=== PATIENT | female | born 1960 | race Caucasian/White ===

== ENCOUNTER → 2020-12-26 14:00 | Outpatient (BNVA) | payer OTHER, SELFPAY | PROVIDERS: Family Provider Nurse Practitioner Family; PCP Nurse Practitioner Family; Visit Provider Nurse Practitioner Family | DX: K21.9 Gastro-esophageal reflux disease without esophagitis (principal); R13.10 Dysphagia, unspecified; I10 Essential (primary) hypertension; R22.1 Localized swelling, mass and lump, neck; J02.9 Acute pharyngitis, unspecified; Z68.29 Body mass index [BMI] 29.0-29.9, adult | CPT/HCPCS: 80053; 84443 ==

== ENCOUNTER 2021-01-15 09:05 | Emergency (ER) | payer OTHER, SELFPAY ==
--- NOTE | 2021-01-15 09:12 | CTR_ITS ---
PROCEDURE INFORMATION: Exam: CT Abdomen And Pelvis With Contrast Exam date and time: 01/15/2021 9:18 AM Age: 60 years old Clinical indication: Abdominal pain; Localized; Lower; Additional info: Abd pain TECHNIQUE: Imaging protocol: Computed tomography of the abdomen and pelvis with contrast. Radiation optimization: All CT scans at this facility use at least one of these dose optimization techniques: automated exposure control; mA and/or kV adjustment per patient size (includes targeted exams where dose is matched to clinical indication); or iterative reconstruction. Contrast material: OMNI 300; Contrast volume: 95 ml; Contrast route: INTRAVENOUS (IV); COMPARISON: No relevant prior studies available. RADIATION DOSE METRICS: Total DLP (mGy-cm): 1391.87 FINDINGS: Liver: Normal. No mass. Gallbladder and bile ducts: Cholecystectomy. Normal bile ducts. Pancreas: Normal. No ductal dilation. Spleen: Normal. No splenomegaly. Adrenal glands: Normal. No mass. Kidneys and ureters: Normal. No hydronephrosis. Stomach and bowel: Unremarkable. No obstruction. No mucosal thickening. Appendix: The appendix is identified and is normal. Intraperitoneal space: There is a small amount of free fluid in the pelvis. No free air seen. Vasculature: There is calcification of the abdominal aorta but there is no aneurysm. Lymph nodes: Unremarkable. No enlarged lymph nodes. Urinary bladder: Unremarkable as visualized. Reproductive: Multiple fibroids are present in the uterus. The largest is a calcified 2.3 cm fibroid. No adnexal masses are seen. Bones/joints: Degenerative changes are present in the spine with sclerosis and osteophytes. Soft tissues: Unremarkable. CT/CT abdomen pelvis w con* [id number] IMPRESSION: 1. Small amount of nonspecific free fluid in the pelvis. 2. Fibroid uterus. 3. 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 4. Cholecystectomy. 5. No other acute abnormalities are seen in the abdomen and pelvis. Radiation Dose CTDIVOL = (mGy): DLP = 1391.87 (mGy-cm)
[2021-01-15 09:17] VITALS: BP 164/88; PULSE 77; RESP 16; TEMP 36.6; O2SAT 97; BMI 29.8
--- NOTE | 2021-01-15 09:23 | ED_ITS ---
Documented by User: Timothy Najera DO 01/16/21 18:07 HPI - Abdominal Pain General: Chief Complaint: Abdominal Pain Stated Complaint: MUCUS IN STOOL, SEVERE PAIN/ PRESSURE Time Seen by Provider: 01/15/21 09:09 History of Present Illness: HPI narrative: 60-year-old female comes in complaining of mucousy stools. She said this for about 10 days. I few weeks ago she had sinus infection symptoms seen her primary care doctor was started on Augmentin. She is able to take it for about 3 days but had severe diarrhea he stopped the antibiotics but the diarrhea persisted. Now has progressed to where she has severely mucousy stools she is having up to 10 stools per day no hematochezia no black tarry stools. She is also having a lot of rectal pain bloating and abdominal discomfort focuses most of the discomfort to the left lo wer quadrant. MD elicited complaint: abdominal pain Onset (ago): day(s) Pain Consistency: constant Location: LLQ Severity: moderate Quality: cramping and stabbing Exacerbating factors: eating and movement Relieving factors: rest Context: recent antibiotic use Associated Symptoms: Reports anorexia, bloating, change in bowel habits, change in stool character, GI cramping, diarrhea, nausea and poor appetite; Denies belching, chills, coffee ground emesis, constipation, dyspepsia, dysuria, excessive flatus, fever(s), heartburn, hematochezia, hematuria, hematemesis, fecal incontinence, loose stools, melena, syncope and vomiting Review of Systems Const: Denies: fever(s) or chills ENMT: Denies: throat pain, ear or mastoid pain, nasal discharge or nasal congestion Card: Denies: syncope Resp: Denies: dyspnea, productive cough or non-productive cough GI: Reports: nausea, diarrhea, bloating, GI cramping, change in bowel habits and change in stool character; Denies: vomiting, hematemesis, coffee ground emesis, heartburn, constipation, belching, excessive flatus, fecal incontinence, hematochezia or melena : Denies: dysuria or hematuria Skin/Breast: Denies: rash or pruritus PFSH ED PFSH: Medical History Hypertension Social History Smoking and tobacco status: never smoked Physical Exam Const: COMMON NORMALS: no acute distress GENERAL APPEARANCE: cooperative and comfortable ORIENTATION/CONSCIOUSNESS: Yes awake, Yes oriented to person, Yes oriented to place and Yes oriented to time HENMT: COMMON NORMALS: normocephalic, atraumatic and hearing grossly normal bilaterally HEAD & SCALP: normocephalic and atraumatic Neck/C-Spine: COMMON NORMALS: no JVD Resp: COMMON NORMALS: normal respiratory effort, No retractions, No use of accessory muscles and clear to auscultation bilaterally AUSCULTATION: clear to auscultation bilaterally Cardio: COMMON NORMALS: no JVD, regular rate, regular rhythm and No murmurs present (Cardio) RATE: regular rate RHYTHM: regular rhythm GI: COMMON NORMALS: No hepatosplenomegaly present AUSCULTATION: Yes Hyper active bowel sounds present PALPATION: Yes Tenderness to palpation present (GI) Details: LLQ, No Guarding due to palpation present (GI) and Yes No hepatosplenomegaly present Extremity: COMMON NORMALS: normal to inspection, capillary refill normal, no clubbing, cyanosis or edema, no calf tenderness and no pedal edema Neuro: SENSORIUM/ORIENTATION: Yes oriented to person, Yes oriented to place and Yes oriented to time Skin: COMMON NORMALS: no rashes or lesions noted GENERAL SKIN EXAM: no rashes or lesions noted Course Vital Signs: Vital signs: Vital Signs Temperature 97.9 F 01/15/21 09:17 Pulse Rate 65 01/15/21 13:20 Respiratory Rate 20 H 01/15/21 13:20 Blood Pressure 130/69 01/15/21 13:20 Pulse Oximetry 98 01/15/21 13:20 MDM - Abdominal Pain MDM Narrative: Medical decision making narrative: Care turned over to Dr. Aviles at change of shift see his notes for final diagnosis and disposition. Lab Data: Labs: Lab Results 01/15/21 01/15/21 01/15/21 Range/Units 09:35 09:35 09:35 WBC 9.3 (4.0-10.0) 10^3/ uL RBC 4.37 (4.1-5.3) 10^6/u L Hgb 13.4 (11.5-15.3) g/dL Hct 40.6 (37.0-47.0) % MCV 92.9 (81-99) fL MCH 30.7 (28.0-34.0) pg MCHC 33.0 (30.0-36.0) g/dL RDW 11.8 L (12.1-15.1) % Plt Count 216 (130-400) 10^3/c mm MPV 11.2 H (7.4-10.4) fL Neut % (Auto) 78.7 % Lymph % (Auto) 13.1 % [place] % (Auto) 6.3 % Eos % (Auto) 1.2 % Baso % (Auto) 0.3 % Neut # (Auto) 7.30 (1.8-7.7) 10^3/u L Lymph # (Auto) 1.2 (0.8-4.8) 10^3/u L [place] # (Auto) 0.6 (0.2-0.9) 10^3/u L Eos # (Auto) 0.1 (0.0-0.8) 10^3/u L Baso # (Auto) 0.0 (0.0-0.1) 10^3/u L Nucleated RBC % (a uto) 0 % Nucleated RBCs # 0.0 /100WBC Sodium 136 (136-145) mmol/L Potassium 4.4 (3.5-5.1) mmol/L Chloride 101 (98-107) mmol/L Carbon Dioxide 28 (22-29) mmol/L Anion Gap 11.4 (5-19) BUN 15 (8-23) mg/dL Creatinine 0.5 (0.5-0.9) mg/dL GFR Calculation 125.4 (90-130) mL/min Glucose 105 (65-115) mg/dL Calculated Osmolal ity 283 L (285-295) mOsm/k g Lactic Acid 0.7 (0.5-2.2) mmol/L Calcium 8.5 (8.5-10.5) mg/dL Total Bilirubin 0.7 (0.15-1.2) mg/dL AST 14 (0-32) U/L ALT 12 (0-33) U/L Alkaline Phosphata se 52 (35-105) IU/L Total Protein 7.0 (6.6-8.7) g/dL Albumin 4.1 (3.5-5.2) g/dL Globulin 2.9 (1.3-4.6) g/dL Lipase 28 (13-60) U/L Urine Color (Yellow) Urine Appearance (CLEAR) Urine pH (5-7) Ur Specific Gravit y (1.005-1.030) Urine Protein (Negative) Urine Glucose (UA) (Normal) Urine Ketones (Negative) Urine Blood (Negative) Urine Nitrate (Negative) Urine Bilirubin (Negative) Urine Urobilinogen (Negative) mg/dL Ur Leukocyte Shazia ase (Negative) Urine RBC (0-2) /hpf Urine WBC (0-5) /hpf Ur Squamous Epith Cells (0-5) /hpf Amorphous Sediment Urine Bacteria (NONE) /hpf Urine Mucus /hpf 01/15/21 Range/Units 10:19 WBC (4.0-10.0) 10^3/ uL RBC (4.1-5.3) 10^6/u L Hgb (11.5-15.3) g/dL Hct (37.0-47.0) % MCV (81-99) fL MCH (28.0-34.0) pg MCHC (30.0-36.0) g/dL RDW (12.1-15.1) % Plt Count (130-400) 10^3/c mm MPV (7.4-10.4) fL Neut % (Auto) % Lymph % (Auto) % [place] % (Auto) % Eos % (Auto) % Baso % (Auto) % Neut # (Auto) (1.8-7.7) 10^3/u L Lymph # (Auto) (0.8-4.8) 10^3/u L [place] # (Auto) (0.2-0.9) 10^3/u L Eos # (Auto) (0.0-0.8) 10^3/u L Baso # (Auto) (0.0-0.1) 10^3/u L Nucleated RBC % (a uto) % Nucleated RBCs # /100WBC Sodium (136-145) mmol/L Potassium (3.5-5.1) mmol/L Chloride (98-107) mmol/L Carbon Dioxide (22-29) mmol/L Anion Gap (5-19) BUN (8-23) mg/dL Creatinine (0.5-0.9) mg/dL GFR Calculation (90-130) mL/min Glucose (65-115) mg/dL Calculated Osmolal ity (285-295) mOsm/k g Lactic Acid (0.5-2.2) mmol/L Calcium (8.5-10.5) mg/dL Total Bilirubin (0.15-1.2) mg/dL AST (0-32) U/L ALT (0-33) U/L Alkaline Phosphata se (35-105) IU/L Total Protein (6.6-8.7) g/dL Albumin (3.5-5.2) g/dL Globulin (1.3-4.6) g/dL Lipase (13-60) U/L Urine Color Straw (Yellow) Urine Appearance Clear (CLEAR) Urine pH 6 (5-7) Ur Specific Gravit y 1.005 (1.005-1.030) Urine Protein Neg (Negative) Urine Glucose (UA) Norm (Normal) Urine Ketones Negative (Negative) Urine Blood 3+ H (Negative) Urine Nitrate Negative (Negative) Urine Bilirubin Neg (Negative) Urine Urobilinogen Norm (Negative) mg/dL Ur Leukocyte Shazia ase 1+ H (Negative) Urine RBC 10-15 H (0-2) /hpf Urine WBC 5-10 H (0-5) /hpf Ur Squamous Epith Cells 0-4 H (0-5) /hpf Amorphous Sediment Not Reportable Urine Bacteria 1+ H (NONE) /hpf Urine Mucus 1+ /hpf Discharge Plan Discharge Patient Disposition: Home Clinical Impression: C. difficile diarrhea, UTI (urinary tract infection) Condition: Stable Prescriptions: New Macrobid 100 mg capsule 100 mg PO BID 5 Days Qty: 10 RF: 0 vancomycin 125 mg capsule 125 mg PO Q6H 10 Days Qty: 40 RF: 0 Discontinued amoxicillin-pot clavulanate [Augmentin] 875-125 mg tablet 1 tab PO BID 10 Days Qty: 20 RF: 0 No Action ibuprofen 200 mg Tablet 200 - 400 mg PO Q6H PRN (Reason: Pain) RF: 0 Vitamin D3 1 tab PO DAILY@0800 RF: 0 lisinopril 20 mg tablet 20 mg PO DAILY@1999 RF: 0 Pepcid 40 mg tablet 40 mg PO BID@0800,1999 RF: 0 metoprolol tartrate 50 mg tablet 75 mg PO BID@ RF: 0 hydrochlorothiazide 25 mg tablet 25 mg PO DAILY@0800 RF: 0 Discharge Orders: Discharge ED (Routine); Ordered 01/15/21 Ordered By: Phil Nieves Referrals: Ct Arriola, INSTRUMENT TECHNICIAN APPRENTICE [Primary Care Provider] - Discharge Diet: Advance as tolerated Discharge Activity: Resume usual activity Patient Instructions: Clostridium Difficile Infection (ED), Opioid Safety Activity Restrictions/Additional Instructions: You are suffering from a C. difficile infection likely related to your recent antibiotics. Please take the vancomycin 4 times a day as directed to help with this and your cramps should get better over time. Follow-up with your physician in 3 to 5 days to monitor improvement of your symptoms and return to the ER with worsening symptoms. Also you have a mild urinary tract infection and I am sending you home with Macrobid to help with this. Coding Level of Care Code ED Manager Paper for Chg Fwd Exam Comprehensive Documented by User: Phil Nieves MD 01/15/21 12:49 HPI - Abdominal Pain General: Chief Complaint: Abdominal Pain Stated Complaint: MUCUS IN STOOL, SEVERE PAIN/ PRESSURE Time Seen by Provider: 01/15/21 09:09 [facility] ED PFSH: Medical History Hypertension Social History Smoking and tobacco status: never smoked Course Vital Signs: Vital signs: Vital Signs Temperature 97.9 F 01/15/21 09:17 Pulse Rate 65 01/15/21 13:20 Respiratory Rate 20 H 01/15/21 13:20 Blood Pressure 130/69 01/15/21 13:20 Pulse Oximetry 98 01/15/21 13:20 MDM - Abdominal Pain MDM Narrative: Medical decision making narrative: Ezequiel: I took over care of this patient just before 10 AM. She came to the ER complaining of abdominal pain and diarrhea. She was recently treated with Augmentin for a sinus infection and developed diarrhea and cramping for the past several days. Blood testing is normal however a sample of her stool is positive for C. difficile. She was given a dose of vancomycin orally in the ER and discharged with a prescription. I discussed with her how pesky this bacteria is and how to take some time to recover from and can recur at any time. She will also discuss it with any future prescriptions of antibiotic she receives with the prescribing physician. Return to the ER with worsening symptoms otherwise follow-up with her primary care physician in 3 to 5 days. 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 I discussed that she may want to stay home from work and call the physician as it is quite contagious and do not want to spread it to other patients. She understands and will follow these recommendations. Recommended handwashing for her and her to prevent spread of infection as the alcohol does not kill it. Lab Data: Labs: Lab Results 01/15/21 01/15/21 01/15/21 Range/Units 09:35 09:35 09:35 WBC 9.3 (4.0-10.0) 10^3/ uL RBC 4.37 (4.1-5.3) 10^6/u L Hgb 13.4 (11.5-15.3) g/dL Hct 40.6 (37.0-47.0) % MCV 92.9 (81-99) fL MCH 30.7 (28.0-34.0) pg MCHC 33.0 (30.0-36.0) g/dL RDW 11.8 L (12.1-15.1) % Plt Count 216 (130-400) 10^3/c mm MPV 11.2 H (7.4-10.4) fL Neut % (Auto) 78.7 % Lymph % (Auto) 13.1 % [place] % (Auto) 6.3 % Eos % (Auto) 1.2 % Baso % (Auto) 0.3 % Neut # (Auto) 7.30 (1.8-7.7) 10^3/u L Lymph # (Auto) 1.2 (0.8-4.8) 10^3/u L [place] # (Auto) 0.6 (0.2-0.9) 10^3/u L Eos # (Auto) 0.1 (0.0-0.8) 10^3/u L Baso # (Auto) 0.0 (0.0-0.1) 10^3/u L Nucleated RBC % (a uto) 0 % Nucleated RBCs # 0.0 /100WBC Sodium 136 (136-145) mmol/L Potassium 4.4 (3.5-5.1) mmol/L Chloride 101 (98-107) mmol/L Carbon Dioxide 28 (22-29) mmol/L Anion Gap 11.4 (5-19) BUN 15 (8-23) mg/dL Creatinine 0.5 (0.5-0.9) mg/dL GFR Calculation 125.4 (90-130) mL/min Glucose 105 (65-115) mg/dL Calculated Osmolal ity 283 L (285-295) mOsm/k g Lactic Acid 0.7 (0.5-2.2) mmol/L Calcium 8.5 (8.5-10.5) mg/dL Total Bilirubin 0.7 (0.15-1.2) mg/dL AST 14 (0-32) U/L ALT 12 (0-33) U/L Alkaline Phosphata se 52 (35-105) IU/L Total Protein 7.0 (6.6-8.7) g/dL Albumin 4.1 (3.5-5.2) g/dL Globulin 2.9 (1.3-4.6) g/dL Lipase 28 (13-60) U/L Urine Color (Yellow) Urine Appearance (CLEAR) Urine pH (5-7) Ur Specific Gravit y (1.005-1.030) Urine Protein (Negative) Urine Glucose (UA) (Normal) Urine Ketones (Negative) Urine Blood (Negative) Urine Nitrate (Negative) Urine Bilirubin (Negative) Urine Urobilinogen (Negative) mg/dL Ur Leukocyte Shazia ase (Negative) Urine RBC (0-2) /hpf Urine WBC (0-5) /hpf Ur Squamous Epith Cells (0-5) /hpf Amorphous Sediment Urine Bacteria (NONE) /hpf Urine Mucus /hpf 01/15/21 Range/Units 10:19 WBC (4.0-10.0) 10^3/ uL RBC (4.1-5.3) 10^6/u L Hgb (11.5-15.3) g/dL Hct (37.0-47.0) % MCV (81-99) fL MCH (28.0-34.0) pg MCHC (30.0-36.0) g/dL RDW (12.1-15.1) % Plt Count (130-400) 10^3/c mm MPV (7.4-10.4) fL Neut % (Auto) % Lymph % (Auto) % [place] % (Auto) % Eos % (Auto) % Baso % (Auto) % Neut # (Auto) (1.8-7.7) 10^3/u L Lymph # (Auto) (0.8-4.8) 10^3/u L [place] # (Auto) (0.2-0.9) 10^3/u L Eos # (Auto) (0.0-0.8) 10^3/u L Baso # (Auto) (0.0-0.1) 10^3/u L Nucleated RBC % (a uto) % Nucleated RBCs # /100WBC Sodium (136-145) mmol/L Potassium (3.5-5.1) mmol/L Chloride (98-107) mmol/L Carbon Dioxide (22-29) mmol/L Anion Gap (5-19) BUN (8-23) mg/dL Creatinine (0.5-0.9) mg/dL GFR Calculation (90-130) mL/min Glucose (65-115) mg/dL Calculated Osmolal ity (285-295) mOsm/k g Lactic Acid (0.5-2.2) mmol/L Calcium (8.5-10.5) mg/dL Total Bilirubin (0.15-1.2) mg/dL AST (0-32) U/L ALT (0-33) U/L Alkaline Phosphata se (35-105) IU/L Total Protein (6.6-8.7) g/dL Albumin (3.5-5.2) g/dL Globulin (1.3-4.6) g/dL Lipase (13-60) U/L Urine Color Straw (Yellow) Urine Appearance Clear (CLEAR) Urine pH 6 (5-7) Ur Specific Gravit y 1.005 (1.005-1.030) Urine Protein Neg (Negative) Urine Glucose (UA) Norm (Normal) Urine Ketones Negative (Negative) Urine Blood 3+ H (Negative) Urine Nitrate Negative (Negative) Urine Bilirubin Neg (Negative) Urine Urobilinogen Norm (Negative) mg/dL Ur Leukocyte Shazia ase 1+ H (Negative) Urine RBC 10-15 H (0-2) /hpf Urine WBC 5-10 H (0-5) /hpf Ur Squamous Epith Cells 0-4 H (0-5) /hpf Amorphous Sediment Not Reportable Urine Bacteria 1+ H (NONE) /hpf Urine Mucus 1+ /hpf Discharge Plan Discharge Patient Disposition: Home Clinical Impression: C. difficile diarrhea, UTI (urinary tract infection) Condition: Stable Prescriptions: New Macrobid 100 mg capsule 100 mg PO BID 5 Days Qty: 10 RF: 0 vancomycin 125 mg capsule 125 mg PO Q6H 10 Days Qty: 40 RF: 0 Discontinued amoxicillin-pot clavulanate [Augmentin] 875-125 mg tablet 1 tab PO BID 10 Days Qty: 20 RF: 0 No Action ibuprofen 200 mg Tablet 200 - 400 mg PO Q6H PRN (Reason: Pain) RF: 0 Vitamin D3 1 tab PO DAILY@0800 RF: 0 lisinopril 20 mg tablet 20 mg PO DAILY@1999 RF: 0 Pepcid 40 mg tablet 40 mg PO BID@799,1999 RF: 0 metoprolol tartrate 50 mg tablet 75 mg PO BID@799,1999 RF: 0 hydrochlorothiazide 25 mg tablet 25 mg PO DAILY@0800 RF: 0 Discharge Orders: Discharge ED (Routine); Ordered 01/15/21 Ordered By: Phil Nieves Referrals: Ct Arriola NP [Primary Care Provider] - Discharge Diet: Advance as tolerated Discharge Activity: Resume usual activity Patient Instructions: Clostridium Difficile Infection (ED), Opioid Safety Activity Restrictions/Additional Instructions: You are suffering from a C. difficile infection likely related to your recent antibiotics. Please take the vancomycin 4 times a day as directed to help with this and your cramps should get better over time. Follow-up with your physician in 3 to 5 days to monitor improvement of your symptoms and return to the ER with worsening symptoms. Also you have a mild urinary tract infection and I am sending you home with Macrobid to help with this. Coding Level of Care Code ED Manager Paper for [place]ad[place] Fwd Exam Comprehensive
[2021-01-15 09:50] VITALS: RESP 18
[2021-01-15] MEDS: morphine 4 mg/mL SDV 1 mL IVP (09:50)
[2021-01-15] MEDS: ondansetron 2 mg/ML SDV 2 mL 4 MG IVP (09:52)
[2021-01-15] MEDS: sodium chloride 0.9% 1,000 ML 999 ML IV (09:53)
[2021-01-15 09:54] LABS: Basophils % 0.3 %; Eosinophils # 0.1 10^3/uL (0.0-0.8); Eosinophils % 1.2 %; Hematocrit 40.6 % (37.0-47.0); Hemoglobin 13.4 g/dL (11.5-15.3); Lymphocytes # 1.2 10^3/uL (0.8-4.8); Lymphocytes % 13.1 %; Mean Corpuscular Hemoglobin 30.7 pg (28.0-34.0); Mean Corpuscular Volume 92.9 fL (81-99); Mean Platelet Volume 11.2 fL (7.4-10.4); Monocytes # 0.6 10^3/uL (0.2-0.9); Monocytes % 6.3 %; Neutrophils % 78.7 %; Nucleated Red Blood Cells % 0 %; Platelet Count 216 10^3/cmm (130-400); Red Blood Count 4.37 10^6/uL (4.1-5.3); Red Cell Distribution Width 11.8 % (12.1-15.1); White Blood Count 9.3 10^3/uL (4.0-10.0)
[2021-01-15 10:30] LABS: Alanine Aminotransferase 12 U/L (0-33); Albumin Level 4.1 g/dL (3.5-5.2); Alkaline Phosphatase 52 IU/L (35-105); Aspartate Amino Transferase 14 U/L (0-32); Blood Urea Nitrogen 15 mg/dL (8-23); Calcium 8.5 mg/dL (8.5-10.5); Carbon Dioxide 28 mmol/L (22-29); Chloride 101 mmol/L (98-107); Creatinine Clr Calc Pharmacy 120.1052; Globulin 2.9 g/dL (1.3-4.6); Glomerular Filtration Rate 125.4 mL/min (90-130); Glucose 105 mg/dL (65-115); Lipase 28 U/L (13-60); Osmolality Calculated 283 mOsm/kg (285-295); Sodium 136 mmol/L (136-145); Total Bilirubin 0.7 mg/dL (0.15-1.2)
[2021-01-15 10:31] LABS: Anion Gap 11.4 (5-19); Lactic Sepsis W/Reflex 0.7 mmol/L (0.5-2.2); Potassium 4.4 mmol/L (3.5-5.1)
[2021-01-15] MEDS: iohexol 300 mg/mL 100 mL Btl IV (10:41)
[2021-01-15 10:51] LABS: Specific Gravity, Urine 1.005 (1.005-1.030); Urine Appearance Clear (CLEAR); Urine Color Straw (Yellow); pH Urine 6 (5-7)
[2021-01-15 10:52] LABS: Add Urine Culture? Yes; Add Urine Microscopic? YES; Bacteria Urine 1+ /hpf; Bilirubin Urine Neg (Negative); Blood Urine 3+ (Negative); Glucose Urine UA Norm (Normal); Ketones Urine Negative (Negative); Leukocyte Esterase Urine 1+ (Negative); Mucus Urine 1+ /hpf; Nitrate Urine Negative (Negative); Protein Urine Neg (Negative); Squamous Epithelial Cell Urine 0-4 /hpf (0-5); Urobilinogen Urine Norm (Negative)
[2021-01-15 13:20] VITALS: BP 130/69; PULSE 65; RESP 20; O2SAT 98
== END 2021-01-15 13:22 | disposition home or self-care (01) ==
PROVIDERS: Family Medicine; Emergency Provider Family Medicine; PCP Nurse Practitioner Family
DX: A04.72 Enterocolitis due to Clostridium difficile, not specified as recurrent (principal); N39.0 Urinary tract infection, site not specified; I10 Essential (primary) hypertension
CPT/HCPCS: 74177; 80053; 81001; 83605; 83690; 85025; 87086; 87493; 96361; 96374; 96375; 99284; J2270; J2405; J3370; J7030; Q9967

== ENCOUNTER 2021-01-17 13:20 | Inpatient (IN) | payer OTHER, SELFPAY ==
[2021-01-17] VITALS (7 sets, daily range): BP systolic 128–151; BP diastolic 74–84; PULSE 84–93; RESP 17–18; TEMP 36.8–37.1; O2SAT 94–98; BMI 29.8
--- NOTE | 2021-01-17 13:58 | PC.NURSE ---
pt unable to provide a stool sample at this time. Fidelina PETERS notified.
--- NOTE | 2021-01-17 14:16 | CT_ITS ---
WS: [id number] CT ABDOMEN AND PELVIS WITH CONTRAST HISTORY: has c. diff, severe lower abdominal pain. TECHNIQUE: Imaging performed of the abdomen and pelvis with IV contrast. Single phase imaging of the abdomen. Coronal and sagittal reformats are submitted. All CT scans at [facility] use at least one of these dose optimization techniques: automated exposure control; mA and/or kV adjustment per patient size (includes targeted exams where dose is matched to clinical indication); or iterativ e reconstruction. IV CONTRAST: Omnipaque 300; 95 mL IV. Oral contrast: No DLP: 1512.33 mGy.cm COMPARISON: 01/15/2021 Lower thorax: Lung bases are clear. Heart is normal size. Small hiatal hernia. Liver/biliary system: Normal size with no intrahepatic dilatation. Gallbladder: Status post cholecystectomy. Pancreas: Normal. Spleen: Normal. Adrenal glands: Normal. Right kidney: Normal. Left kidney: Normal. Aorta: Mild atherosclerosis with no aneurysm. Lymphadenopathy: None. Free fluid: Small amount of free fluid in the pelvis. Small amount of free fluid in the cul-de-sac an d also along the LEFT adnexa. GI tract: Diffuse increase in fecal retention and constipation. Since the prior study there has been a significant progression of wall thickening and edema involving the distal sigmoid colon and the rec dorene. There is now free fluid and narrowing of the lumen. No free air. Abdominal wall: Unremarkable abdominal wall. No hernia. Pelvis: Uterus is anteverted with calcified fibroid to the LEFT. Fluid in the cul-de-sac and edema ibarra rrounding the distal sigmoid and rectum. Bones: RIGHT ilium bone island. CT/CT abdomen pelvis w con* [id number] IMPRESSION: 1. Progression of circumferential wall thickening with mucosal edema involving the distal sigmoid and rectum. New adjacent free fluid with pericolonic strand ing. Probably on the basis of patient's known C. difficile. 2. Increase in the diffuse constipation and fecal retention. 3. Normal appendix. 4. No free air. 5. Prior cholecystectomy.
[2021-01-17 14:38] LABS: Basophils % 0.2 %; Eosinophils # 0.1 10^3/uL (0.0-0.8); Eosinophils % 0.8 %; Hematocrit 38.8 % (37.0-47.0); Hemoglobin 12.9 g/dL (11.5-15.3); Lymphocytes % 10.2 %; Mean Corpuscular HGB Conc 33.2 g/dL (30.0-36.0); Mean Corpuscular Hemoglobin 30.5 pg (28.0-34.0); Mean Corpuscular Volume 91.7 fL (81-99); Mean Platelet Volume 11.1 fL (7.4-10.4); Monocytes # 0.7 10^3/uL (0.2-0.9); Monocytes % 6.3 %; Neutrophils # 8.43 10^3/uL (1.8-7.7); Neutrophils % 82.3 %; Nucleated Red Blood Cells % 0 %; Platelet Count 231 10^3/cmm (130-400); Red Blood Count 4.23 10^6/uL (4.1-5.3); Red Cell Distribution Width 11.6 % (12.1-15.1); White Blood Count 10.2 10^3/uL (4.0-10.0)
[2021-01-17 14:42] LABS: Add Urine Microscopic? YES; Bilirubin Urine Neg (Negative); Blood Urine 3+ (Negative); Glucose Urine UA Norm (Normal); Ketones Urine Negative (Negative); Leukocyte Esterase Urine Trace (Negative); Nitrate Urine Negative (Negative); Protein Urine Neg (Negative); Urine Appearance Clear (CLEAR); Urine Color Yellow (Yellow); Urobilinogen Urine Norm (Negative); pH Urine 5 (5-7)
[2021-01-17 14:54] LABS: Alanine Aminotransferase 16 U/L (0-33); Albumin Level 4.3 g/dL (3.5-5.2); Alkaline Phosphatase 57 IU/L (35-105); Anion Gap 14.7 (5-19); Aspartate Amino Transferase 11 U/L (0-32); Blood Urea Nitrogen 9 mg/dL (8-23); C Reactive Protein 124.6 mg/L (0.0-4.9); Calcium 9.1 mg/dL (8.5-10.5); Carbon Dioxide 30 mmol/L (22-29); Chloride 95 mmol/L (98-107); Creatinine Clr Calc Pharmacy 120.1052; Globulin 3.3 g/dL (1.3-4.6); Glomerular Filtration Rate 125.4 mL/min (90-130); Glucose 112 mg/dL (65-115); Lipase 17 U/L (13-60); Osmolality Calculated 281 mOsm/kg (285-295); Potassium 3.7 mmol/L (3.5-5.1); Sodium 136 mmol/L (136-145); Total Bilirubin 0.6 mg/dL (0.15-1.2); Total Protein 7.6 g/dL (6.6-8.7)
[2021-01-17 14:55] LABS: Lactate (Lactic Acid level) 0.8 mmol/L (0.5-2.2)
[2021-01-17 15:02] LABS: Add Urine Culture? Yes; Bacteria Urine 1+ /hpf; Squamous Epithelial Cell Urine 0-4 /hpf (0-5); WBC Urine 0-4 /hpf (0-5)
[2021-01-17] MEDS: iohexol 300 mg/mL 100 mL Btl IV (15:08)
[2021-01-17] MEDS: ondansetron 2 mg/ML SDV 2 mL 4 MG IVP ×2 (15:14→21:30)
[2021-01-17] MEDS: morphine 4 mg/mL SDV 1 mL IVP (15:14)
[2021-01-17] MEDS: metroNIDAZOLE IV 500 MG/100 ML PREMIX 100 MG IV (17:06)
--- NOTE | 2021-01-17 17:27 | PM.HP ---
Providers/Chief Complaint Primary Care Provider: Ct Arriola NP Chief Complaint: SEEN SUN W/C EVELIN, FEELS WORSE TODAY,SENT BY PCP History of Present Illness Olesya Lujan is a 60 year old female past medical history of hypertension, came in with chief complaint of, generalized abdominal pain, nausea, low-grade fever.She was diagnosed with sinusitis a week back when she was started on oral antibiotics (Augmentin ) , she took it for 2 days after that she started having worsening watery diarrhea, with foul smell, she eventually stopped taking the antibiotic, but since the abdominal pain continued to worsen, She decided to come to the ER ON 01/15, when she was diagnosed with C. difficile diarrhea, and UTI and was discharged on p.o. vancomycin as well as Macrobid 100 MG PO BID from the ER. She eventually returned to the ER today as her abdominal pain was worsening, she continued to have mucoid stool. Upon arrival in the ER she was worked up for above mentioned complaints. CT abdomen and pelvis without contrast: Progression of circumferential wall thickening with mucosal edema involving the distal sigmoid and rectum. New adjacent free fluid with pericolonic stranding. Pertinent labs: WBC: 10.2, serum sodium:136, k: 3.7, CRP: 124, lipase: 17, Urinalysis: 0-4 WBC, trace urine leukocyte Estrace, 1+ urine bacteria. Review of Systems Const: Denies: chills or body aches Card: Denies: palpitations, edema, swelling of feet/ankles, dyspnea on exertion, orthopnea or leg pain with exertion Resp: Denies: dyspnea, productive cough, wheezing or pain on inspiration : Denies: flank pain Musc: Denies: back pain, extremity pain or extremity swelling Neuro: Denies: headache(s), difficulty walking or confusion Medications/Allergies Home Medications Medication Instructions Recorded Confirmed Last Taken Type Vitamin D3 1 tab PO DAILY@0800 01/15/21 01/17/21 01/17/21 History famotidine [Pepcid] 40 mg PO BID@08,199901/15/21 01/17/21 01/17/21 History hydrochlorothiazide 25 mg PO DAILY@00 01/15/21 01/17/21 01/17/21 History lisinopril 20 mg PO DAILY@199901/15/21 01/17/21 01/16/21 History metoprolol tartrate 75 mg PO BID@0800,199901/15/21 01/17/21 01/17/21 History vancomycin 125 mg PO Q6H 10 Days #40 cap 01/15/21 01/17/21 01/17/21 Rx Vitamin B-12 1 tab PO DAILY@0800 01/17/21 01/17/21 Unknown History acetaminophen [Tylenol] 325 - 650 mg PO QID PRN 01/17/21 01/17/21 Unknown History fluticasone propionate [Flonase] 1 spray INTRANASAL DAILY 01/17/21 01/17/21 Unknown History nitrofurantoin monohyd/m-cryst 100 mg PO BID@0800,199901/17/21 01/17/21 01/17/21 History [Macrobid] Allergies Allergy/AdvReac Type Severity Reaction Status Date / Time influenza virus vaccine qs Allergy ADR/ALGY-Pa Verified 01/17/21 13:29 [id number] (36 mos, up) lpitations [From Fluarix Quad] sulfamethoxazole Allergy pass out Verified 01/17/21 13:29 [From Bactrim] trimethoprim [From Bactrim] Allergy pass out Verified 01/17/21 13:29 PFSH Acute PFSH: Medical History Hypertension Social History Smoking and tobacco status: never smoked Vitals/I&O/Wt Last Vital Signs Temp 98.5 F 01/17/21 13:30 Pulse 91 01/17/21 17:09 Resp 18 01/17/21 17:09 BP 137/84 01/17/21 17:09 Pulse Ox 97 01/17/21 17:09 Weight last 48 hrs Weight 78.925 kg Physical Exam Const: COMMON NORMALS: patient oriented x3 HENMT: COMMON NORMALS: normocephalic and atraumatic HEAD & SCALP: normocephalic and atraumatic Chest: COMMONS NORMALS: normal inspection of the chest CHEST: Yes Symmetrical chest wall rise Resp: COMMON NORMALS: clear to auscultation bilaterally AUSCULTATION: clear to auscultation bilaterally Cardio: COMMON NORMALS: regular rate, regular rhythm, S1 normal heart sound present, S2 normal heart sound present, No gallops present (Cardio), No murmurs present (Cardio), No rub (Cardio) and Peripheral pulses 2+ throughout RATE: regular rate RHYTHM: regular rhythm HEART SOUNDS: S1 normal heart sound present and S2 normal heart sound present PERIPHERAL PULSES: Peripheral pulses 2+ throughout GI: COMMON NORMALS: Normal to inspection, nondistended, normoactive bowel sounds present AUSCULTATION: Yes normoactive bowel sounds RECTAL EXAM: deferred OTHER: Generalized abdominal tenderness, no guarding no rigidity, no rebound tenderness Extremity: COMMON NORMALS: no clubbing, cyanosis or edema and no pedal edema Neuro: COMMON NORMALS: patient oriented x3 Data : 01/17/21 14:23 01/17/21 14:23 A&P Assessment and plan (1) C. difficile colitis: Trend CRP Patient was initially started on vancomycin p.o. 125 mg QID. We will switch her to vancomycin p.o. to 250 mg QID for 10 days Metronidazole 500 mg IV every 6 hours daily Ciprofloxacin 400 mg i.v q12 h daily. Clear liquid diet Normal saline @ 75 cc/hr Status: Acute (2) UTI (urinary tract infection): Status: Acute (3) Hypertension: Status: Acute Additional A&P Information DVT prophylaxis: Lovenox 40 mg subcu daily CODE STATUS: Full code Disposition: Home Attestations Medical Necessity Statement*: Patient needs to be in hospital for management of C. difficile colitis. Anticipated length of stay greater than 2 midnights. Coding Level of Care Code Acute Biotechnician for Salena Stovall Diagnoses C. difficile colitis A04.72 UTI (urinary tract infection) N39.0 Hypertension I10
--- NOTE | 2021-01-17 18:00 | PC.NURSE ---
pt report called to Rajan GONSALES in SBAR format.
[2021-01-17] MEDS: enoxaparin 40 mg/0.4 mL Syringe SUBCUT (18:53)
[2021-01-17] MEDS: docusate sodium 100 mg Capsule PO (18:53)
[2021-01-17] MEDS: oxyCODONE-APAP 5-325 mg Tablet 1 TAB PO (18:53)
[2021-01-17] MEDS: sodium chloride 0.9% 1,000 ML 75 ML IV (18:53)
[2021-01-17] MEDS: famotidine 20 mg Tablet 40 MG PO (20:53)
--- NOTE | 2021-01-17 21:50 | PC.NURSE ---
Medication Patient was given ordered dose of Vancomycin 250MG PO and vomited directly after. Dr. Blandon ordered to give a second dose tonight.
[2021-01-17] MEDS: ciprofloxacin 400 MG/200 ML PREMIX 200 MG IV (22:01)
--- NOTE | 2021-01-17 23:06 | ED_ITS ---
HPI - Abdominal Pain General: Chief Complaint: Abdominal Pain Stated Complaint: SEEN SUN W/C DIFF, FEELS WORSE TODAY,SENT BY PCP Time Seen by Provider: 01/17/21 13:37 Source: patient Mode of arrival: ambulatory Limitations: no limitations History of Present Illness: HPI narrative: 60-year-old female patient who was seen in the emergency department 2 days ago for abdominal pain and at that time was diagnosed with C. difficile colitis. She was discharged home on oral vancomycin. She however states that the pain has continued and is actually worsening now the pain is currently severe and she is unable to take it anymore. She denies any fever and no vomiting. She is here to be seen and evaluated for this. MD elicited complaint: abdominal pain Pertinent past history: other (c. diff) Onset (ago): day(s) (2) Pain Consistency: constant Location: RLQ, LLQ and Suprapubic Severity: severe Quality: sharp Radiation: none Migration to: no migration Exacerbating factors: movement Relieving factors: nothing Associated Symptoms: Reports change in stool character; Denies anorexia, belching, bloating, change in bowel habits, chills, coffee ground emesis, constipation, GI cramping, diarrhea, dyspepsia, dysuria, excessive flatus, fever(s), heartburn, hematochezia, hematuria, hematemesis, fecal incontinence, melena, nausea, poor appetite, syncope and vomiting Review of Systems General: Reports: 10 or more systems reviewed and unremarkable except in HPI and below Const: Denies: fever(s) or chills Card: Denies: syncope GI: Reports: change in stool character; Denies: nausea, vomiting, hematemesis, coffee ground emesis, heartburn, diarrhea, constipation, bloating, GI cramping, belching, excessive flatus, fecal incontinence, change in bowel habits, hematochezia or melena : Denies: dysuria or hematuria PFS ED PFSH: Medical History Hypertension Social History Smoking and tobacco status: never smoked Physical Exam Const: COMMON NORMALS: no acute distress, average body habitus, patient oriented x3, no limitations, healthy appearing, alert and well nourished HENMT: COMMON NORMALS: normocephalic, atraumatic and moist oral mucous membranes HEAD & SCALP: normocephalic and atraumatic Neck/C-Spine: COMMON NORMALS: no meningeal signs and no JVD Resp: COMMON NORMALS: normal respiratory effort, No retractions, No use of accessory muscles, clear to auscultation bilaterally and percussion normal AUSCULTATION: clear to auscultation bilaterally PERCUSSION: percussion normal Cardio: COMMON NORMALS: no JVD, regular rate, regular rhythm, S1 normal heart sound present, S2 normal heart sound present, No gallops present (Cardio), No clicks present (Cardio), No murmurs present (Cardio), No rub (Cardio) and Peripheral pulses 2+ throughout RATE: regular rate RHYTHM: regular rhythm HEART SOUNDS: S1 normal heart sound present and S2 normal heart sound present PERIPHERAL PULSES: Peripheral pulses 2+ throughout GI: COMMON NORMALS: Normal to inspection, nondistended, normoactive bowel soun ds present, Soft to palpation, No hepatosplenomegaly present, no masses and no bruits PALPATION: Yes Soft to palpation, Yes Tenderness to palpation present (GI) Details: LLQ, RLQ and other (suprapubic), Yes Guarding due to palpation present (GI), Yes No hepatosplenomegaly present and No Rebound tenderness present Extremity: COMMON NORMALS: normal to inspection, full ROM, capillary refill normal, no calf tenderness and no pedal edema Neuro: COMMON NORMALS: patient oriented x3 SENSORIUM/ORIENTATION: Yes alert MENINGEAL SIGNS: Yes no meningeal signs Skin: COMMON NORMALS: no rashes or lesions noted, no wounds, turgor normal, no jaundice, no petechiae and no mottling GENERAL SKIN EXAM: no rashes or lesions noted and turgor normal Course Reevaluation(s): Reevaluation #1: Discussed her lab and imaging findings with her as well as my conversation with the hospitalist. Advised that we would like to keep her in the hospital and she voiced understanding and is in agreement with the plan. Time: 16:30 Consultations: Consultation #1: Discussed the patient with Dr. Mccarthy, hospitalist and he kindly accepted the patient to his service. Time: 16:23 Vital Signs: Vital signs: Vital Signs Temperature 98.8 F 01/17/21 19:33 Pulse Rate 93 01/17/21 19:33 Respiratory Rate 17 01/17/21 19:33 Blood Pressure 130/77 01/17/21 19:33 Pulse Oximetry 94 01/17/21 19:33 MDM - Abdominal Pain MDM Narrative: Medical decision making narrative: 60-year-old female patient who presents to the emergency department with abdominal pain. 2 days ago she was diagnosed with C. difficile colitis and her pain was worsening so she came to the emergency department to be evaluated. On examination and evaluation she appears to have worsening of the colitis with increased colonic wall thickening and pericolic fluid. She has been taking her oral vancomycin faithfully according to her and because she has failed outpatient therapy she has been admitted to the hospital for further evaluation and management. Medical Records: Attestation: I reviewed the patient's medical records. Lab Data: Attestation: I reviewed the patient's lab results. Labs: Lab Results 01/17/21 01/17/21 01/17/21 Range/Units 13:43 14:23 14:23 WBC 10.2 H (4.0-10.0) 10^3/ uL RBC 4.23 (4.1-5.3) 10^6/u L Hgb 12.9 (11.5-15.3) g/dL Hct 38.8 (37.0-47.0) % MCV 91.7 (81-99) fL MCH 30.5 (28.0-34.0) pg MCHC 33.2 (30.0-36.0) g/dL RDW 11.6 L (12.1-15.1) % Plt Count 231 (130-400) 10^3/c mm MPV 11.1 H (7.4-10.4) fL Neut % (Auto) 82.3 % Lymph % (Auto) 10.2 % [place] % (Auto) 6.3 % Eos % (Auto) 0.8 % Baso % (Auto) 0.2 % Neut # (Auto) 8.43 H (1.8-7.7) 10^3/u L Lymph # (Auto) 1.0 (0.8-4.8) 10^3/u L [place] # (Auto) 0.7 (0.2-0.9) 10^3/u L Eos # (Auto) 0.1 (0.0-0.8) 10^3/u L Baso # (Auto) 0.0 (0.0-0.1) 10^3/u L Nucleated RBC % (a uto) 0 % Nucleated RBCs # 0.0 /100WBC Sodium 136 (136-145) mmol/L Potassium 3.7 (3.5-5.1) mmol/L Chloride 95 L (98-107) mmol/L Carbon Dioxide 30 H (22-29) mmol/L Anion Gap 14.7 (5-19) BUN 9 (8-23) mg/dL Creatinine 0.5 (0.5-0.9) mg/dL GFR Calculation 125.4 (90-130) mL/min Glucose 112 (65-115) mg/dL Calculated Osmolal ity 281 L (285-295) mOsm/k g Lactate (0.5-2.2) mmol/L Calcium 9.1 (8.5-10.5) mg/dL Total Bilirubin 0.6 (0.15-1.2) mg/dL AST 11 (0-32) U/L ALT 16 (0-33) U/L Alkaline Phosphata se 57 (35-105) IU/L C-Reactive Protein 124.6 H (0.0-4.9) mg/L Total Protein 7.6 (6.6-8.7) g/dL Albumin 4.3 (3.5-5.2) g/dL Globulin 3.3 (1.3-4.6) g/dL Lipase 17 (13-60) U/L Urine Color Yellow (Yellow) Urine Appearance Clear (CLEAR) Urine pH 5 (5-7) Ur Specific Gravit y 1.010 (1.005-1.030) Urine Protein Neg (Negative) Urine Glucose (UA) Norm (Normal) Urine Ketones Negative (Negative) Urine Blood 3+ H (Negative) Urine Nitrate Negative (Negative) Urine Bilirubin Neg (Negative) Urine Urobilinogen Norm (Negative) mg/dL Ur Leukocyte Shazia ase Trace H (Negative) Urine RBC 10-15 H (0-2) /hpf Urine WBC 0-4 H (0-5) /hpf Ur Squamous Epith Cells 0-4 H (0-5) /hpf Amorphous Sediment Not Reportable Urine Bacteria 1+ H (NONE) /hpf 01/17/21 Range/Units 14:23 WBC (4.0-10.0) 10^3/ uL RBC (4.1-5.3) 10^6/u L Hgb (11.5-15.3) g/dL Hct (37.0-47.0) % MCV (81-99) fL MCH (28.0-34.0) pg MCHC (30.0-36.0) g/dL RDW (12.1-15.1) % Plt Count (130-400) 10^3/c mm MPV (7.4-10.4) fL Neut % (Auto) % Lymph % (Auto) % [place] % (Auto) % Eos % (Auto) % Baso % (Auto) % Neut # (Auto) (1.8-7.7) 10^3/u L Lymph # (Auto) (0.8-4.8) 10^3/u L [place] # (Auto) (0.2-0.9) 10^3/u L Eos # (Auto) (0.0-0.8) 10^3/u L Baso # (Auto) (0.0-0.1) 10^3/u L Nucleated RBC % (a uto) % Nucleated RBCs # /100WBC Sodium (136-145) mmol/L Potassium (3.5-5.1) mmol/L Chloride (98-107) mmol/L Carbon Dioxide (22-29) mmol/L Anion Gap (5-19) BUN (8-23) mg/dL Creatinine (0.5-0.9) mg/dL GFR Calculation (90-130) mL/min Glucose (65-115) mg/dL Calculated Osmolal ity (285-295) mOsm/k g Lactate 0.8 (0.5-2.2) mmol/L Calcium (8.5-10.5) mg/dL Total Bilirubin (0.15-1.2) mg/dL AST (0-32) U/L ALT (0-33) U/L Alkaline Phosphata se (35-105) IU/L C-Reactive Protein (0.0-4.9) mg/L Total Protein (6.6-8.7) g/dL Albumin (3.5-5.2) g/dL Globulin (1.3-4.6) g/dL Lipase (13-60) U/L Urine Color (Yellow) Urine Appearance (CLEAR) Urine pH (5-7) Ur Specific Gravit y (1.005-1.030) Urine Protein (Negative) Urine Glucose (UA) (Normal) Urine Ketones (Negative) Urine Blood (Negative) Urine Nitrate (Negative) Urine Bilirubin (Negative) Urine Urobilinogen (Negative) mg/dL Ur Leukocyte Shazia ase (Negative) Urine RBC (0-2) /hpf Urine WBC (0-5) /hpf Ur Squamous Epith Cells (0-5) /hpf Amorphous Sediment Urine Bacteria (NONE) /hpf Imaging Data ^: CT Abd/Pel: Attestation: I personally reviewed and interpreted this imaging study as follows: Radiologist's impression: [address] [address] [address] Scan Report Signed Patient: Guillermo Lujan #: [id number] : 9At#:[id number] Age/Sex: 60 / FADM Date: 01/17/21 Loc: ERRoom/Bed: Attending Dr: Ordering Provider/Ordering MD: Sharri Kitchen MD, [facility] [place] Date of Service: 01/17/21 Procedure(s): CT abdomen pelvis w con* [id number] Accession Number(s): [id number] Report Number: [id number] WS: [id number] CT ABDOMEN AND PELVIS WITH CONTRAST HISTORY: has c. diff, severe lower abdominal pain. TECHNIQUE: Imaging performed of the abdomen and pelvis with IV contrast. Single phase imaging of the abdomen. Coronal and sagittal reformats are submitted. All CT scans at [facility] use at least one of these dose optimization techniques: automated exposure control; mA and/or kV adjustment per patient size (includes targeted exams where dose is matched to clinical indication); or ite rative reconstruction. IV CONTRAST: Omnipaque 300; 95 mL IV. Oral contrast: No DLP: 1512.33 mGy.cm COMPARISON: 01/15/2021 Lower thorax: Lung bases are clear. Heart is normal size. Small hiatal hernia. Liver/biliary system: Normal size with no intrahepatic dilatation. Gallbladder: Status post cholecystectomy. Pancreas: Normal. Spleen: Normal. Adrenal glands: Normal. Right kidney: Normal. Left kidney: Normal. Aorta: Mild atherosclerosis with no aneurysm. Lymphadenopathy: None. Free fluid: Small amount of free fluid in the pelvis. Small amount of free fluid in the cul-de-sac and also along the LEFT adnexa. GI tract: Diffuse increase in fecal retention and constipation. Since the prior study there has been a significant progression of wall thickening and edema involving the distal sigmoid colon and the rectum. There is now free fluid and narrowing of the lumen. No free air. Abdominal wall: Unremarkable abdominal wall. No hernia. Pelvis: Uterus is anteverted with calcified fibroid to the LEFT. Fluid in the cul-de-sac and edema surrounding the distal sigmoid and rectum. Bones: RIGHT ilium bone island. CT/CT abdomen pelvis w con* [id number] IMPRESSION: 1. Progression of circumferential wall thickening with mucosal edema involving the distal sigmoid and rectum. New adjacent free fluid with pericolonic stranding. Probably on the basis of patient's known C. difficile. 2. Increase in the diffuse constipation and fecal retention. 3. Normal appendix. 4. No free air. 5. Prior cholecystectomy. Dictated By:Nati Hightower DO Signed By:Nati Hightower DOSigned Date/Time:01/17/211538 DD/ 33 Discharge Plan Discharge Patient Disposition: Admitted As Inpatient Admit Provider: Brian Mccarthy Clinical Impression: C. difficile colitis Condition: Stable Coding Level of Care Code ED Hypoid Gear Generator for Salena Stovall
[2021-01-18] VITALS (7 sets, daily range): BP systolic 107–145; BP diastolic 64–75; PULSE 81–99; RESP 16–17; TEMP 36.3–36.8; O2SAT 94–98
[2021-01-18] MEDS: metroNIDAZOLE IV 500 MG/100 ML PREMIX 100 MG IV ×4 (00:04→17:56)
[2021-01-18] MEDS: ondansetron 2 mg/ML SDV 2 mL 4 MG IVP ×3 (04:50→20:54)
[2021-01-18 06:20] LABS: Basophils % 0.3 %; Eosinophils # 0.1 10^3/uL (0.0-0.8); Hematocrit 33.4 % (37.0-47.0); Hemoglobin 11.1 g/dL (11.5-15.3); Lymphocytes # 0.7 10^3/uL (0.8-4.8); Lymphocytes % 10.3 %; Mean Corpuscular HGB Conc 33.2 g/dL (30.0-36.0); Mean Corpuscular Hemoglobin 30.4 pg (28.0-34.0); Mean Corpuscular Volume 91.5 fL (81-99); Mean Platelet Volume 11.3 fL (7.4-10.4); Monocytes # 0.6 10^3/uL (0.2-0.9); Neutrophils % 80.1 %; Nucleated Red Blood Cells % 0 %; Platelet Count 189 10^3/cmm (130-400); Red Blood Count 3.65 10^6/uL (4.1-5.3); Red Cell Distribution Width 11.4 % (12.1-15.1); White Blood Count 7.1 10^3/uL (4.0-10.0)
[2021-01-18 06:41] LABS: Alanine Aminotransferase 12 U/L (0-33); Albumin Level 3.6 g/dL (3.5-5.2); Alkaline Phosphatase 46 IU/L (35-105); Anion Gap 11.6 (5-19); Aspartate Amino Transferase 8 U/L (0-32); Blood Urea Nitrogen 9 mg/dL (8-23); Calcium 8.4 mg/dL (8.5-10.5); Carbon Dioxide 30 mmol/L (22-29); Chloride 98 mmol/L (98-107); Creatinine Clr Calc Pharmacy 120.1052; Globulin 2.7 g/dL (1.3-4.6); Glomerular Filtration Rate 125.4 mL/min (90-130); Glucose 119 mg/dL (65-115); Magnesium 1.9 mg/dL (1.7-2.3); Osmolality Calculated 282 mOsm/kg (285-295); Potassium 3.6 mmol/L (3.5-5.1); Sodium 136 mmol/L (136-145); Total Bilirubin 0.8 mg/dL (0.15-1.2); Total Protein 6.3 g/dL (6.6-8.7)
[2021-01-18 06:42] LABS: C Reactive Protein 112.1 mg/L (0.0-4.9)
[2021-01-18 06:54] LABS: Procalcitonin 0.06 ng/mL (0-0.5)
[2021-01-18 06:55] LABS: Erythrocyte Sedimentation Rate 60 mm/hr (0-15)
[2021-01-18] MEDS: hydroCHLOROthiazide 25 mg Tablet PO (09:07)
[2021-01-18] MEDS: docusate sodium 100 mg Capsule PO ×2 (09:08→17:56)
[2021-01-18] MEDS: lisinopril 20 mg Tablet PO ×2 (09:08→20:28)
[2021-01-18] MEDS: sodium chloride 0.9% 1,000 ML 75 ML IV (09:09)
[2021-01-18] MEDS: ciprofloxacin 400 MG/200 ML PREMIX 200 MG IV ×2 (09:10→20:30)
[2021-01-18] MEDS: famotidine 20 mg Tablet 40 MG PO ×2 (09:19→20:28)
--- NOTE | 2021-01-18 16:40 | P.PN_ITS ---
Subjective Subjective: Interval history: Patient was seen and examined this morning, abdominal pain has improved.Complaining of constipation,no vomiting. Has no fever,WBC is trending down. CRP is improving. Vitals/I&O/Wt Last Vital Signs Temp 97.4 F L 01/18/21 15:21 Pulse 84 01/18/21 15:21 Resp 16 01/18/21 15:21 BP 125/71 01/18/21 15:21 Pulse Ox 97 01/18/21 15:21 01/18/21 01/18/21 01/18/21 06:59 14:59 22:59 Intake Total 640 / 740 2019 Output Total 150 / 450 400 / 400 Balance 490 / 290 1620 / 1620 Weight last 48 hrs Weight 78.925 kg Physical Exam Const: COMMON NORMALS: patient oriented x3 HENMT: COMMON NORMALS: normocephalic and atraumatic HEAD & SCALP: normocephalic and atraumatic Chest: COMMONS NORMALS: normal inspection of the chest CHEST: Yes Symmetrical chest wall rise Resp: COMMON NORMALS: clear to auscultation bilaterally AUSCULTATION: clear to auscultation bilaterally Cardio: COMMON NORMALS: regular rate, regular rhythm, S1 normal heart sound present, S2 normal heart sound present, No gallops present (Cardio), No murmurs present (Cardio), No rub (Cardio) and Peripheral pulses 2+ throughout RATE: regular rate RHYTHM: regular rhythm HEART SOUNDS: S1 normal heart sound present and S2 normal heart sound present PERIPHERAL PULSES: Peripheral pulses 2+ throughout GI: COMMON NORMALS: Normal to inspection, nondistended, normoactive bowel sounds present AUSCULTATION: Yes normoactive bowel sounds RECTAL EXAM: deferred OTHER: LLQ Adominal tenderness Extremity: COMMON NORMALS: no clubbing, cyanosis or edema and no pedal edema Neuro: COMMON NORMALS: patient oriented x3 Data : 01/18/21 05:37 01/18/21 05:37 Micro: Microbiology 01/17/21 13:43 Urine Culture - Preliminary Urine,Clean Catch A&P Assessment and plan (1) C. difficile colitis: Trend CRP Patient was initially started on vancomycin p.o. 125 mg QID. We will switch her to vancomycin p.o. to 250 mg QID for 10 days Metronidazole 500 mg IV every 6 hours daily Ciprofloxacin 400 mg i.v q12 h daily. Clear liquid diet Normal saline @ 75 cc/hr Status: Acute (2) UTI (urinary tract infection): Follow urine culture. Continue Ciprofloxacin Status: Acute (3) Hypertension: Status: Acute Additional A&P Information DVT prophylaxis: Lovenox 40 mg subcu daily CODE STATUS: Full code Disposition: Home Attestations Medical Necessity Statement*: Patient needs to be in hospital for the management of C.diff collitis. Coding Level of Care Code Acute Power And Recovery Shift Engineer for [facility] Fwd Exam Detailed Diagnoses C. difficile colitis A04.72 UTI (urinary tract infection) N39.0 Hypertension I10
[2021-01-18] MEDS: enoxaparin 40 mg/0.4 mL Syringe SUBCUT (17:56)
[2021-01-19] VITALS (9 sets, daily range): BP systolic 113–146; BP diastolic 59–81; PULSE 78–111; RESP 16–18; TEMP 36.2–37.1; O2SAT 90–99
[2021-01-19] MEDS: metroNIDAZOLE IV 500 MG/100 ML PREMIX 100 MG IV ×4 (00:50→17:57)
[2021-01-19] MEDS: sodium chloride 0.9% 1,000 ML 100 ML IV ×2 (02:37→17:57)
--- NOTE | 2021-01-19 03:23 | PC.NURSE ---
PATIENT STATUS: THE PATIENT HAS BEEN COMPLAINING OF FEELING HER HEART RACING, A HEADACHE, AND FAINT LIKE. HOSPITALIST NOTIFIED AND VERBAL ORDERS GIVEN TO INCREASE MAINTENANCE FLUIDS FROM 75 ML TO 100 PER HOUR. INCREASED PO INTAKE WAS ENCOURAGED, WITH THIS THE PATIENT HAS NOT REPORTED THIS COMPLAINT AGAIN.
[2021-01-19 06:30] LABS: Basophils % 0.4 %; Eosinophils # 0.1 10^3/uL (0.0-0.8); Eosinophils % 1.8 %; Hematocrit 33.6 % (37.0-47.0); Hemoglobin 11.2 g/dL (11.5-15.3); Lymphocytes # 1.1 10^3/uL (0.8-4.8); Lymphocytes % 16.2 %; Mean Corpuscular HGB Conc 33.3 g/dL (30.0-36.0); Mean Corpuscular Hemoglobin 30.6 pg (28.0-34.0); Mean Corpuscular Volume 91.8 fL (81-99); Mean Platelet Volume 10.6 fL (7.4-10.4); Monocytes # 0.6 10^3/uL (0.2-0.9); Monocytes % 8.2 %; Neutrophils % 73.1 %; Nucleated Red Blood Cells % 0 %; Platelet Count 213 10^3/cmm (130-400); Red Blood Count 3.66 10^6/uL (4.1-5.3); Red Cell Distribution Width 11.4 % (12.1-15.1); White Blood Count 6.7 10^3/uL (4.0-10.0)
[2021-01-19 06:56] LABS: Alanine Aminotransferase 10 U/L (0-33); Albumin Level 3.5 g/dL (3.5-5.2); Alkaline Phosphatase 43 IU/L (35-105); Anion Gap 11.4 (5-19); Aspartate Amino Transferase 7 U/L (0-32); Blood Urea Nitrogen 6 mg/dL (8-23); Calcium 8.3 mg/dL (8.5-10.5); Carbon Dioxide 29 mmol/L (22-29); Chloride 101 mmol/L (98-107); Globulin 2.8 g/dL (1.3-4.6); Glomerular Filtration Rate 162.3 mL/min (90-130); Glucose 104 mg/dL (65-115); Osmolality Calculated 284 mOsm/kg (285-295); Potassium 3.4 mmol/L (3.5-5.1); Sodium 138 mmol/L (136-145); Total Bilirubin 0.4 mg/dL (0.15-1.2); Total Protein 6.3 g/dL (6.6-8.7)
[2021-01-19 07:00] LABS: Creatinine Clr Calc Pharmacy 150.1315
[2021-01-19 07:17] LABS: C Reactive Protein 86.4 mg/L (0.0-4.9)
[2021-01-19 07:44] LABS: Erythrocyte Sedimentation Rate 60 mm/hr (0-15)
[2021-01-19] MEDS: hydroCHLOROthiazide 25 mg Tablet PO (09:57)
[2021-01-19] MEDS: docusate sodium 100 mg Capsule PO ×2 (09:57→17:59)
[2021-01-19] MEDS: potassium chloride oral liq 20 mEq/15 mL UDC 40 MEQ PO (10:03)
[2021-01-19] MEDS: ciprofloxacin 400 MG/200 ML PREMIX 200 MG IV ×2 (10:03→21:15)
[2021-01-19] MEDS: famotidine 20 mg Tablet 40 MG PO ×2 (10:04→21:17)
--- NOTE | 2021-01-19 11:12 | P.PN_ITS ---
Subjective Subjective: Interval history: Patient was seen and examined this morning, abdominal pain has improved.Complaining of constipation,no vomiting. Has no fever,WBC is trending down. CRP is improving. Vitals/I&O/Wt Last Vital Signs Temp 97.2 F L 01/19/21 08:00 Pulse 87 01/19/21 08:00 Resp 18 01/19/21 08:00 BP 113/79 01/19/21 08:00 Pulse Ox 96 01/19/21 08:00 01/18/21 01/19/21 01/19/21 22:59 06:59 14:59 Intake Total 540 / 2560 1100 / 3660 100 / 100 Output Total 0 / 400 Balance 540 / 2160 1100 / 3260 100 / 100 Weight last 48 hrs Weight 78.925 kg Physical Exam Const: COMMON NORMALS: patient oriented x3 HENMT: COMMON NORMALS: normocephalic and atraumatic HEAD & SCALP: norm ocephalic and atraumatic Chest: COMMONS NORMALS: normal inspection of the chest CHEST: Yes Symm etrical chest wall rise Resp: COMMON NORMALS: clear to auscultation bilaterally AUSCULTATION: clear to auscultation bilaterally Cardio: COMMON NORMALS: regular rate, regular rhythm, S1 normal heart sound present, S2 normal heart sound present, No gallops present (Cardio), No murmurs present (Cardio), No rub (Cardio) and Peripheral pulses 2+ throughout RATE: regular rate RHYTHM: regular rhythm HEART SOUNDS: S1 normal heart sound present and S2 normal heart sound present PERIPHERAL PULSES: Peripheral pulses 2+ throughout GI: COMMON NORMALS: Normal to inspection, nondistended, normoactive bowel soun ds present AUSCULTATION: Yes normoactive bowel sounds RECTAL EXAM: deferred OTHER: LLQ Adominal tenderness Extremity: COMMON NORMALS: no clubbing, cyanosis or edema and no pedal edema Neuro: COMMON NORMALS: patient oriented x3 Data : 01/19/21 06:08 01/19/21 06:08 Micro: Microbiology 01/17/21 13:43 Urine Culture - Final Urine,Clean Catch A&P Assessment and plan (1) C. difficile colitis: Trend CRP Patient was initially started on vancomycin p.o. 125 mg QID. We will switch her to vancomycin p.o. to 250 mg QID for 10 days Metronidazole 500 mg IV every 6 hours daily Ciprofloxacin 400 mg i.v q12 h daily. Clear liquid diet Normal saline @ 75 cc/hr Status: Acute (2) UTI (urinary tract infection): Follow urine culture. Continue Ciprofloxacin Status: Acute (3) Hypertension: Status: Acute Additional A&P Information DVT prophylaxis: Lovenox 40 mg subcu daily CODE STATUS: Full code Disposition: Home Attestations Medical Necessity Statement*: Patient needs to be in hospital for management of C. difficile colitis. Coding Level of Care Code Acute Certified Hand Therapist for [facility] Fwd Exam Detailed Diagnoses C. difficile colitis A04.72 UTI (urinary tract infection) N39.0 Hypertension I10
[2021-01-19] MEDS: enoxaparin 40 mg/0.4 mL Syringe SUBCUT (18:56)
[2021-01-19] MEDS: lisinopril 20 mg Tablet PO (21:18)
[2021-01-20] VITALS (9 sets, daily range): BP systolic 122–163; BP diastolic 69–89; PULSE 76–101; RESP 16–18; TEMP 36.3–36.9; O2SAT 95–98
[2021-01-20] MEDS: metroNIDAZOLE IV 500 MG/100 ML PREMIX 100 MG IV ×5 (00:14→23:50)
[2021-01-20 06:17] LABS: Basophils % 0.6 %; Eosinophils # 0.2 10^3/uL (0.0-0.8); Hematocrit 35.8 % (37.0-47.0); Hemoglobin 11.6 g/dL (11.5-15.3); Lymphocytes # 1.2 10^3/uL (0.8-4.8); Lymphocytes % 23.9 %; Mean Corpuscular HGB Conc 32.4 g/dL (30.0-36.0); Mean Corpuscular Hemoglobin 29.7 pg (28.0-34.0); Mean Corpuscular Volume 91.6 fL (81-99); Mean Platelet Volume 10.2 fL (7.4-10.4); Monocytes # 0.4 10^3/uL (0.2-0.9); Neutrophils # 3.18 10^3/uL (1.8-7.7); Neutrophils % 64.1 %; Nucleated Red Blood Cells % 0 %; Platelet Count 232 10^3/cmm (130-400); Red Blood Count 3.91 10^6/uL (4.1-5.3); Red Cell Distribution Width 11.4 % (12.1-15.1)
[2021-01-20 06:35] LABS: Alanine Aminotransferase 9 U/L (0-33); Albumin Level 3.5 g/dL (3.5-5.2); Alkaline Phosphatase 41 IU/L (35-105); Anion Gap 9.6 (5-19); Aspartate Amino Transferase 9 U/L (0-32); Blood Urea Nitrogen 6 mg/dL (8-23); Calcium 8.4 mg/dL (8.5-10.5); Carbon Dioxide 30 mmol/L (22-29); Chloride 101 mmol/L (98-107); Globulin 2.7 g/dL (1.3-4.6); Glomerular Filtration Rate 101.6 mL/min (90-130); Glucose 108 mg/dL (65-115); Osmolality Calculated 282 mOsm/kg (285-295); Potassium 3.6 mmol/L (3.5-5.1); Sodium 137 mmol/L (136-145); Total Bilirubin 0.4 mg/dL (0.15-1.2); Total Protein 6.2 g/dL (6.6-8.7)
[2021-01-20 06:38] LABS: C Reactive Protein 65.4 mg/L (0.0-4.9)
[2021-01-20 07:08] LABS: Erythrocyte Sedimentation Rate 54 mm/hr (0-15)
[2021-01-20] MEDS: acetaminophen 325 mg Tablet 650 MG PO (08:28)
[2021-01-20] MEDS: famotidine 20 mg Tablet 40 MG PO ×2 (08:29→21:00)
[2021-01-20] MEDS: hydroCHLOROthiazide 25 mg Tablet PO (08:29)
[2021-01-20] MEDS: ciprofloxacin 400 MG/200 ML PREMIX 200 MG IV ×2 (08:31→21:00)
[2021-01-20] MEDS: sodium chloride 0.9% 1,000 ML 100 ML IV (08:31)
--- NOTE | 2021-01-20 10:41 | P.PN_ITS ---
Subjective Subjective: Interval history: Patient was seen and examined this morning, abdominal pain has improved a lot. She is complaining of palpitation at night which wakes her at night.will restart home metoprolol.t Has no fever,WBC is trending down. Vitals/I&O/Wt Last Vital Signs Temp 97.4 F L 01/20/21 08:00 Pulse 79 01/20/21 08:00 Resp 17 01/20/21 08:00 BP 136/75 01/20/21 08:00 Pulse Ox 98 01/20/21 08:00 01/19/21 01/20/21 01/20/21 22:59 06:59 14:59 Intake Total 540 / 1940 1900 / 3840 660 / 660 Balance 540 / 1940 1900 / 3840 660 / 660 Physical Exam Const: COMMON NORMALS: patient oriented x3 HENMT: COMMON NORMALS: normocephalic and atraumatic HEAD & SCALP: normocephalic and atraumatic Chest: COMMONS NORMALS: normal inspection of the chest CHEST: Yes Symmetrical chest wall rise Resp: COMMON NORMALS: clear to auscultation bilaterally AUSCULTATION: clear to auscultation bilaterally Cardio: COMMON NORMALS: regular rate, regular rhythm, S1 normal heart sound present, S2 normal heart sound present, No gallops present (Cardio), No murmurs present (Cardio), No rub (Cardio) and Peripheral pulses 2+ throughout RATE: regular rate RHYTHM: regular rhythm HEART SOUNDS: S1 normal heart sound present and S2 normal heart sound present PERIPHERAL PULSES: Peripheral pulses 2+ throughout GI: COMMON NORMALS: Normal to inspection, nondistended, normoactive bowel sounds present, Soft to palpation, non-tender, No hepatosplenomegaly present and no masses AUSCULTATION: Yes normoactive bowel sounds PALPATION: Yes Soft to palpation and Yes No hepatosplenomegaly present RECTAL EXAM: deferred Extremity: COMMON NORMALS: no clubbing, cyanosis or edema and no pedal edema Neuro: COMMON NORMALS: patient oriented x3 Data : 01/20/21 06:05 01/20/21 06:05 Micro: Microbiology 01/17/21 13:43 Urine Culture - Final Urine,Clean Catch A&P Assessment and plan (1) C. difficile colitis: Trend CRP Patient was initially started on vancomycin p.o. 125 mg QID. We will switch her to vancomycin p.o. to 250 mg QID for 10 days Metronidazole 500 mg IV every 6 hours daily Ciprofloxacin 400 mg i.v q12 h daily. Clear liquid diet Normal saline @ 75 cc/hr Status: Acute (2) UTI (urinary tract infection): Follow urine culture. Continue Ciprofloxacin Status: Acute (3) Hypertension: Status: Acute (4) Anemia: Status: Acute Additional A&P Information DVT prophylaxis: Lovenox 40 mg subcu daily CODE STATUS: Full code Disposition: Home Attestations Medical Necessity Statement*: Patient needs to be in hospital for management of C. difficile colitis. Coding Level of Care Code Acute Gauge And Instrument Inspector for [facility] Fwd Exam Detailed Diagnoses C. difficile colitis A04.72 UTI (urinary tract infection) N39.0 Hypertension I10 Anemia D64.9
[2021-01-20] MEDS: enoxaparin 40 mg/0.4 mL Syringe SUBCUT (18:16)
[2021-01-20] MEDS: ALPRAZolam 0.25 mg Tablet PO (21:00)
[2021-01-20] MEDS: lisinopril 20 mg Tablet PO (21:00)
[2021-01-21 03:57] VITALS: BP 119/74; PULSE 77; RESP 16; TEMP 36.9; O2SAT 97
[2021-01-21] MEDS: metroNIDAZOLE IV 500 MG/100 ML PREMIX 100 MG IV (04:42)
[2021-01-21 06:00] VITALS: PULSE 75
[2021-01-21 07:34] VITALS: BP 137/81; PULSE 75; RESP 17; TEMP 36.8; O2SAT 98
[2021-01-21] MEDS: famotidine 20 mg Tablet 40 MG PO (09:10)
[2021-01-21] MEDS: ciprofloxacin 400 MG/200 ML PREMIX 200 MG IV (09:10)
[2021-01-21] MEDS: hydroCHLOROthiazide 25 mg Tablet PO (09:10)
--- NOTE | 2021-01-21 11:46 | PM.DCS ---
Discharge Providers Date of Admission: 01/17/21 17:22 Date of Discharge: January 21, 2021 Attending Provider at Admission: Brian Mccarthy MD Attending Provider at Discharge: Brian Mccarthy MD Primary Care Provider: Ct Arriola NP Diagnoses at Discharge Discharge Diagnosis (1) C. difficile colitis: (2) UTI (urinary tract infection): (3) Hypertension: (4) Anemia: Reason for Visit Reason for Visit: SEEN SUN W/C DIFF, FEELS WORSE TODAY,SENT BY PCP Hospital Course Hospital Course Olesya Lujan is a 60 year old female past medical history of hypertension, came in with chief complaint of, generalized abdominal pain, nausea, low-grade fever.She was diagnosed with sinusitis a week back when she was started on oral antibiotics (Augmentin ) , she took it for 2 days after that she started having worsening watery diarrhea, with foul smell, she eventually stopped taking the antibiotic, but since the abdominal pain continued to worsen, She decided to come to the ER ON 01/15, when she was diagnosed with C. difficile diarrhea, and UTI and was discharged on p.o. vancomycin as well as Macrobid 100 MG PO BID from the ER. She eventually returned to the ER today as her abdominal pain was worsening, she continued to have mucoid stool. Upon arrival in the ER she was worked up for above mentioned complaints. CT abdomen and pelvis without contrast: Progression of circumferential wall thickening with mucosal edema involving the distal sigmoid and rectum. New adjacent free fluid with pericolonic stranding. Pertinent labs: WBC: 10.2, serum sodium:136, k: 3.7, CRP: 124, lipase: 17, Urinalysis: 0-4 WBC, trace urine leukocyte Estrace, 1+ urine bacteria. She was admitted for the management of C.Diff collitis as well as UTI.She was kept on 250 mg po vancomycin q6 h daily as well as on I.V metronidazole and ciprofloxacin.She responded well to the current medical management.At the time of discharge she denied nausea,vomitting,abdominal pain, diarrhea,bloody stool,no fever, hemodynamically stable. Urine culture was negative. She was discharged on PO vancomycin to complete the 10 day oral course. Patient will continue to follow PCP as outpatient. Physical Exam Const: COMMON NORMALS: patient oriented x3 HENMT: COMMON NORMALS: normocephalic and atraumatic HEAD & SCALP: normocephalic and atraumatic Chest: COMMONS NORMALS: normal inspection of the chest CHEST: Yes Symmetrical chest wall rise Resp: COMMON NORMALS: clear to auscultation bilaterally AUSCULTATION: clear to auscultation bilaterally Cardio: COMMON NORMALS: regular rate, regular rhythm, S1 normal heart sound present, S2 normal heart sound present, No gallops present (Cardio), No murmurs present (Cardio), No rub (Cardio) and Peripheral pulses 2+ throughout RATE: regular rate RHYTHM: regular rhythm HEART SOUNDS: S1 normal heart sound present and S2 normal heart sound present PERIPHERAL PULSES: Peripheral pulses 2+ throughout GI: COMMON NORMALS: Normal to inspection, nondistended, normoactive bowel sounds present, Soft to palpation, non-tender, No hepatosplenomegaly present and no masses AUSCULTATION: Yes normoactive bowel sounds PALPATION: Yes Soft to palpation and Yes No hepatosplenomegaly present RECTAL EXAM: deferred Extremity: COMMON NORMALS: no clubbing, cyanosis or edema and no pedal edema Neuro: COMMON NORMALS: patient oriented x3 Discharge Data Data Completed and Pending: Completed Studies During Hospitalization Category Date Time Status CT abdomen pelvis w con* [id number] Urge nt Cat Scan 01/17/21 14:16 Completed Vitals: Last Vital Signs Temp 98.2 F 01/21/21 07:34 Pulse 75 01/21/21 07:34 Resp 17 01/21/21 07:34 BP 137/81 01/21/21 07:34 Pulse Ox 98 01/21/21 07:34 Discharge Plan Discharge Patient Disposition: Home Condition: Stable Prescriptions: New ciprofloxacin HCl 500 mg tablet 500 mg PO BID Qty: 6 RF: 0 metronidazole 500 mg tablet 500 mg PO BID Qty: 6 RF: 0 vancomycin 250 mg capsule 250 mg PO Q6H Qty: 24 RF: 0 Continued Tylenol 325 mg Tablet 325 - 650 mg PO QID PRN (Reason: Pain) RF: 0 fluticasone propionate 50 mcg/actuation [place],Suspension 1 spray INTRANASAL DAILY RF: 0 Vitamin B-12 1 tab PO DAILY@0800 RF: 0 Vitamin D3 1 tab PO DAILY@0800 RF: 0 lisinopril 20 mg tablet 20 mg PO DAILY@1999 RF: 0 famotidine [Pepcid] 40 mg tablet 40 mg PO BID@0800,1999 RF: 0 metoprolol tartrate 50 mg tablet 75 mg PO BID@ RF: 0 hydrochlorothiazide 25 mg tablet 25 mg PO DAILY@799 RF: 0 vancomycin 125 mg capsule 125 mg PO Q6H 10 Days Qty: 40 RF: 0 Discontinued nitrofurantoin monohyd/m-cryst [Macrobid] 100 mg capsule 100 mg PO BID@ RF: 0 Discharge Orders: Discharge Order (Routine); Ordered 01/21/21 Ordered By: Brian Mccarthy Discharge Diet: Regular Discharge Activity: Resume usual activity Patient Instructions: Ciprofloxacin (By mouth), Metronidazole (By mouth), Clostridium Difficile Infection (GEN), Opioid Safety Discharge Attestations Time Spent in Discharge Care*: less than 30 min Specific Discharge Activities: educating patient, educating and/or supporting family/caregiver, discussing with pillowcase sewer/social workers/dc planners and documenting/other paperwork Status at Discharge: Cognitive status at discharge: cognitively intact, Behavioral status at discharge: cooperative, Functional status at discharge: independent ambulation Overall status at discharge: patient is back to baseline Quality Metrics Clinical Quality Measures During this hospital stay, did patient experience: None Coding Level of Care Code Acute Chg FW DC note Diagnoses C. difficile colitis A04.72 UTI (urinary tract infection) N39.0 Hypertension I10 Anemia D64.9
[2021-01-21 11:53] VITALS: BP 132/84; PULSE 90; RESP 17; TEMP 36.9; O2SAT 96
[2021-01-21 13:50] VITALS: BP 132/84; PULSE 90; RESP 17; TEMP 36.9; O2SAT 96
--- NOTE | 2021-01-21 13:51 | PC.NURSE ---
Discharge instructions given to patient, all questions answered. IV catheter removed, tip intact. Pt discharged at this time in stable condition.
== END 2021-01-21 13:53 | disposition home or self-care (01) | DRG 372 ==
LOC: ER 13:37 → MEDSURG 17:39
PROVIDERS: Admitting Provider Internal Medicine; Emergency Provider Family Medicine; PCP Nurse Practitioner Family; Visit Provider Internal Medicine
DX: A04.72 Enterocolitis due to Clostridium difficile, not specified as recurrent (principal); N39.0 Urinary tract infection, site not specified; I10 Essential (primary) hypertension; D64.9 Anemia, unspecified; K59.00 Constipation, unspecified
CPT/HCPCS: 36415; 74177; 80053; 81001; 83605; 83690; 83735; 84145; 85025; 85651; 86140; 87086; 96365; 96372; 96375; 99285; J0744; J1650; J2270; J2405; J3370; J7030; Q9967; S0030

== ENCOUNTER 2021-02-07 10:15 | Outpatient (CLI) | payer OTHER, SELFPAY ==
--- NOTE | 2021-02-07 10:22 | FL_ITS ---
WS: [id number] ESOPHAGRAM WITH FLUOROSCOPY HISTORY: R22.1 - Localized swelling, mass and lump, neck COMPARISON: None available. FLUOROSCOPY TIME: 0.9 minutes. Esophagus and swallowing function: Patient swallowed the barium mixture without difficulty. There is small intermittently visualized posterior esophageal diverticulum at the C5-6 level which is probably a Zenker's diverticulum. No filling defects or food products within the diverticulum and this is onl y intermittently visualized. No obstruction of flow. No hernia or reflux. Patient swallowed the bariu m tablet with no difficulty. Gastroesophageal reflux: None. Hiatal hernia: No hiatal hernia. FL/FL barium swallow [id number] IMPRESSION: 1. Small Zenker's diverticulum at the C5-6 level. 2. Otherwise normal.
== END 2021-02-07 10:16 | disposition home or self-care (01) ==
PROVIDERS: PCP Nurse Practitioner Family; Visit Provider Nurse Practitioner Family
DX: R22.1 Localized swelling, mass and lump, neck (principal); K22.5 Diverticulum of esophagus, acquired
CPT/HCPCS: 74220

== ENCOUNTER 2021-02-09 08:17 | Outpatient (CLI) | payer OTHER, SELFPAY ==
--- NOTE | 2021-02-09 08:45 | US_ITS ---
WS: [id number] Subcutaneous ultrasound of the midline of the inferior anterior neck, 02/09/2021 Clinical Data: R13.10 - Dysphagia, unspecified Comparison: None. Findings: Only normal subcutaneous tissue could be seen. There were no cysts or masses. US/US soft tissue head neck [id number] Impression: Negative subcutaneous ultrasound of the anterior inferior neck.
== END 2021-02-09 08:18 | disposition home or self-care (01) ==
LOC: RAD 08:21
PROVIDERS: PCP Nurse Practitioner Family; Visit Provider Nurse Practitioner Family
DX: R13.10 Dysphagia, unspecified (principal); R22.1 Localized swelling, mass and lump, neck
CPT/HCPCS: 76536

== ENCOUNTER 2021-02-20 15:39 | Emergency (ER) | payer OTHER, SELFPAY ==
[2021-02-20 15:46] VITALS: BP 149/84; PULSE 89; RESP 18; TEMP 36.6; O2SAT 98; BMI 29.3
--- NOTE | 2021-02-20 16:12 | ED_ITS ---
HPI - Back Pain/Injury General: Chief Complaint: Back Pain/Injury Stated Complaint: BACK PAIN/INJURY Time Seen by Provider: 02/20/21 16:09 Source: patient Mode of arrival: ambulatory Limitations: no limitations History of Present Illness: HPI Narrative: Olesya is a pleasant 60-year-old female who presents with complaint of left-sided lower back/sciatica pain that shoots down her left leg. She denies any falls or trauma. She was recently discharged from the hospital about a week ago with a bout of C. difficile infection. NO saddle paresthesia. No loss of bowel or bladder control. MD elicited complaint: back pain Onset (ago): day(s) (3) Associated symptoms: Deny abdominal pain, chills, fever(s), nausea or vomiting Review of Systems Const: Denies: fever(s) or chills Eyes: Denies: change in vision ENMT: Denies: throat pain Card: Denies: chest pain or palpitations Resp: Denies: dyspnea or productive cough GI: Denies: abdominal pain, nausea or vomiting : Denies: difficulty voiding Musc: Reports: back pain; Denies: neck pain Skin/Breast: Denies: rash Neuro: Denies: headache(s) PFSH ED PFSH: Medical History Anemia C. difficile colitis Deafness Hypertension Nephrolithiasis UTI (urinary tract infection) Surgical History H/O esophagogastroduodenoscopy History of cholecystectomy 2006 History of colonoscopy 2011 History of shoulder surgery left- 2012 History of tonsillectomy Family History Grandmother CAD (coronary artery disease) Father Hypertension Other Lung disease Denies family history of Diabetes Cancer Stroke Social History Smoking and tobacco status: never smoked Physical Exam Const: COMMON NORMALS: no acute distress, patient oriented x3 and alert GENERAL APPEARANCE: cooperative HENMT: COMMON NORMALS: normocephalic HEAD & SCALP: normal to inspection and normocephalic Eye: COMMON NORMALS: Equal, round and reactive pupils present and EOMs intact bilaterally PUPIL: Yes Equal, round and reactive pupils present Neck/C-Spine: COMMON NORMALS: full ROM Chest: COMMONS NORMALS: normal inspection of the chest CHEST: Yes Symmetrical chest wall rise Resp: COMMON NORMALS: normal respiratory effort EFFORT & INSPECTION: Yes able to speak in complete sentences and Yes symmetric chest movement Cardio: COMMON NORMALS: regular rate and regular rhythm RATE: regular rate RHYTHM: regular rhythm GI: COMMON NORMALS: Normal to inspection, nondistended, normoactive bowel sounds present and Soft to palpation PALPATION: Yes Soft to palpation Back/Pelvis: THORACIC SPINE/UPPER BACK: Yes normal to inspection LUMBAR SPINE/LOWER BACK: No lumbar spinal tenderness PELVIS: Yes buttocks normal and Yes sciatic notch tenderness on the left BACK IMAGE (FEMALE): 1. tender here Extremity: COMMON NORMALS: normal to inspection EXTREMITY IMAGE (BACK): 1. tender here Neuro: COMMON NORMALS: patient oriented x3 SENSORIUM/ORIENTATION: Yes alert Course ED course: P.o. Valium, IM shots of Decadron and Toradol given here in the ER. Pain is most consistent with sciatica nerve pain. Denies any falls or trauma. Given no trauma we discussed and she declines x-rays at this time. I see no obvious rash along the dermatome on this side. Patient's brought her to the ER. Vital Signs: Vital signs: Vital Signs Temperature 97.9 F 02/20/21 15:46 Pulse Rate 89 02/20/21 15:46 Respiratory Rate 18 02/20/21 15:46 Blood Pressure 149/84 02/20/21 15:46 Pulse Oximetry 98 02/20/21 15:46 Discharge Plan Discharge Patient Disposition: Home Clinical Impression: Sciatica Qualifiers: Laterality: left Qualified Code(s): M54.32 - Sciatica, left side Condition: Stable Prescriptions: New naproxen 500 mg tablet 500 mg PO BID PRN (Reason: pain) Qty: 20 RF: 0 cyclobenzaprine 10 mg tablet 10 mg PO BID Qty: 12 RF: 0 No Action metoprolol tartrate 50 mg tablet 75 mg PO BID Qty: 90 RF: 3 lisinopril 20 mg tablet 20 mg PO DAILY Qty: 90 RF: 3 famotidine [Pepcid] 40 mg tablet 40 mg PO BID Qty: 90 RF: 3 hydrochlorothiazide 25 mg tablet 25 mg PO DAILY Qty: 90 RF: 3 Tylenol 325 mg Tablet 325 - 650 mg PO QID PRN (Reason: Pain) RF: 0 fluticasone propionate 50 mcg/actuation [place],Suspension 1 spray INTRANASAL DAILY RF: 0 Vitamin B-12 1 tab PO DAILY@0800 RF: 0 metronidazole 500 mg tablet 500 mg PO BID Qty: 6 RF: 0 Vitamin D3 1 tab PO DAILY@0800 RF: 0 Discharge Orders: Discharge ED (Routine); Ordered 02/20/21 Ordered By: Olinda Parker Referrals: Ct Arriola, HAIR PREPARER [Primary Care Provider] - Discharge Diet: Usual diet Discharge Activity: Increase activity as tolerated Patient Instructions: Opioid Safety Activity Restrictions/Additional Instructions: Take naproxen twice a day scheduled for the next 3 days. Use muscle relaxer as needed as directed. Follow-up with your family doctor in 3 to 5 days for reassessment. You may use [id number] Tylenol or ibuprofen as needed as directed by package instructions for pain in addition to your pain medication given. Return if any problems. Coding Level of Care Code ED Financial Administration Officer for [facility] Fwd Exam Comprehensive
[2021-02-20] MEDS: diazePAM 5 mg Tablet PO (16:25)
[2021-02-20] MEDS: dexamethasone 10 mg/mL INJ IM (16:28)
[2021-02-20] MEDS: ketorolac 30 mg/mL INJ IM (16:28)
== END 2021-02-20 16:49 | disposition home or self-care (01) ==
PROVIDERS: Emergency Provider Physician Assistant; PCP Nurse Practitioner Family
DX: M54.32 Sciatica, left side (principal); I10 Essential (primary) hypertension
CPT/HCPCS: 96372; 99283; J1100; J1885

== ENCOUNTER → 2021-03-17 08:39 | Outpatient (BNVA) | payer OTHER, SELFPAY | PROVIDERS: PCP Nurse Practitioner Family; Visit Provider Internal Medicine | DX: Z12.11 Encounter for screening for malignant neoplasm of colon (principal) | CPT/HCPCS: 87635 ==

== ENCOUNTER 2021-03-23 09:04 | Day surgery (SDC) | payer OTHER, SELFPAY ==
[2021-03-21 13:52] VITALS: BMI 29.2
--- NOTE | 2021-03-23 09:31 | ANES.PREANE2 ---
Pre-Anesthetic Assessment Pre-Anesthetic Assessment: Height/Weight: Height 1.63 m Weight 77.111 kg Preop Diagnosis: panendoscopy Proposed Procedure: Operation Date: 03/23/21 10:45 Proposed Procedures p EGD/colon 26168 [id number] Z12.11(Not Applicable) - Ovidio Nuno MD s Colonoscopy(Not Applicable) - Ovidio Nuno MD Was Beta Altagracia taken within 24 hours: N/A Was Clonidine taken within 24 hours: N/A Social: Social History: No alcohol and No tobacco Exam: Pre-Anes Outpt Exam: alert, oriented x 3, clear to auscultation bilaterally and regular rate & rhythm Airway: Submandibular: WNL Cervical ROM: WNL MP: 2 Dentition: Chipped Additional comments: poor dentition, multiple missing and chipped Pulmonary: Pulmonary: Sleep apnea CV/HEM: CV/HEM: Anemia and HTN GI: GI: GERD Anesthetic Plan: ASA status: 3 Anesthesia: MAC Risk of > 500 ml blood loss (7ml/kg in children): No PFSH Anesthesia PFSH: Medical History Anemia C. difficile colitis Deafness Hypertension Nephrolithiasis UTI (urinary tract infection) Surgical History H/O esophagogastroduodenoscopy History of cholecystectomy 2006 History of colonoscopy 2011 History of shoulder surgery left- 2012 History of tonsillectomy Family History Grandmother CAD (coronary artery disease) Father Hypertension Other Lung disease Denies family history of Diabetes Cancer Stroke Social History Smoking and tobacco status: never smoked Data Anesthesia Cardiac Studies: No Data to Display
[2021-03-23 10:06] VITALS: BP 143/76; PULSE 77; RESP 18; TEMP 36.3; O2SAT 97
[2021-03-23] MEDS: sodium chloride 0.9% 1,000 ML 30 ML IV (10:21)
--- NOTE | 2021-03-23 11:07 | W.PM.OPSFHP ---
Same Day Surgery H&P Indication for Procedure/HPI DATE OF PROCEDURE: March 23, 2021 CHIEF COMPLAINT/INDICATIONFOR SURGICAL PROCEDURE: gerd/colitis, plan for EGD/colonoscopy PREOP DIAGNOSIS: panendoscopy PLANNED PROCEDRUE: Operation Date: 03/23/21 10:45 Proposed Procedures p EGD/colon 36459 [id number] Z12.11(Not Applicable) - Ovidio Nuno MD s Colonoscopy(Not Applicable) - Ovidio Nuno MD Medications/Allergies* Home Medications Medication Instructions Recorded Confirmed Type Vitamin D3 1 tab PO DAILY@0800 01/15/21 03/23/21 History Vitamin B-12 1 tab PO DAILY@0800 01/17/21 03/23/21 History acetaminophen [Tylenol] 325 - 650 mg PO QID PRN 01/17/21 03/21/21 History fluticasone propionate 1 spray INTRANASAL DAILY 01/17/21 03/23/21 History Allergies/Adverse Reactions Allergy/AdvReac Type Severity Reaction Status Date / Time influenza virus vaccine qs Allergy ADR/ALGY-Pa Verified 03/23/21 09:59 [id number] (36 mos, up) lpitations [From Fluarix Quad] sulfamethoxazole Allergy pass out Verified 03/23/21 09:59 [From Bactrim] trimethoprim [From Bactrim] Allergy pass out Verified 03/23/21 09:59 Current Medications: Generic Name Dose Route Start Last Admin Trade Name Freq PRN Reason Stop Dose Admin Sodium Chloride 1,000 mls @ 30 mls/hr 03/23/21 10:15 03/23/21 10:21 Sodium Chloride 0.9% IV 03/24/21 10:14 30 mls/hr .Q24H JORI Administration Pertinent History/Comorbid Conditions* Medical History (Updated 02/28/21 @ 00:01 by ) Anemia C. difficile colitis Deafness Hypertension Nephrolithiasis UTI (urinary tract infection) Surgical History (Updated 02/20/21 @ 10:41 by Ovidio Nuno MD) H/O esophagogastroduodenoscopy History of cholecystectomy 2006 History of colonoscopy 2011 History of shoulder surgery left- 2012 History of tonsillectomy Family History (Updated 02/20/21 @ 10:24 by Marcelina Jorge) CAD (coronary artery disease) Grandmother Lung disease Hypertension Father Denies family history of Diabetes Cancer Stroke Social History Smoking and tobacco status: never smoked Pertinent Exam Findings alert and regular rate & rhythm Recommendations Surgery/Procedure today Coding Level of Care Code Acute Improvement Advisor for [facility]
[2021-03-23 11:41] VITALS: BP 128/67; PULSE 75; RESP 16; TEMP 36.1; O2SAT 100
[2021-03-23 11:56] VITALS: BP 132/81; PULSE 66; RESP 16; O2SAT 95
--- NOTE | 2021-03-23 13:40 | ANE.PACU2 ---
Inpatient post-anesthesia follow up: Airway intact: Yes Vital signs: Temperature 97 F Pulse Rate 66 Respiratory Rate 16 Blood Pressure 132/81 Pulse Oximetry 95 Oxygen Delivery Me thod Room Air Oxygen Flow Rate Fraction of Inspir ed Oxygen Hydration adequate: Yes Nausea and vomiting: No Pain level: 1 Mental status: Baseline
== END 2021-03-23 12:32 | disposition home or self-care (01) ==
PROVIDERS: PCP Nurse Practitioner Family; Visit Provider Surgery
PROC: 0DJ08ZZ Inspection of Upper Intestinal Tract, Via Natural or Artificial Opening Endoscopic (ICD-10-PCS; CPT 43235; principal; 2021-03-23 10:45)
PROC: 0DJD8ZZ Inspection of Lower Intestinal Tract, Via Natural or Artificial Opening Endoscopic (ICD-10-PCS; CPT 45378; 2021-03-23 10:45)
DX: Z12.11 Encounter for screening for malignant neoplasm of colon (principal); K21.9 Gastro-esophageal reflux disease without esophagitis; D12.5 Benign neoplasm of sigmoid colon; K64.8 Other hemorrhoids; K20.90 Esophagitis, unspecified without bleeding; K44.9 Diaphragmatic hernia without obstruction or gangrene; G47.30 Sleep apnea, unspecified; I10 Essential (primary) hypertension; Z82.49 Family history of ischemic heart disease and other diseases of the circulatory system
CPT/HCPCS: 43235; 45380; 88305; 96360; 96361; J2704; J7030

== ENCOUNTER → 2022-01-16 15:13 | Outpatient (BNVA) | payer OTHER, SELFPAY | PROVIDERS: PCP Nurse Practitioner Family; Visit Provider Nurse Practitioner Family | DX: I10 Essential (primary) hypertension (principal) | CPT/HCPCS: 80053; 80061 ==

== ENCOUNTER → 2022-10-17 09:26 | Outpatient (BNVA) | payer OTHER, SELFPAY | PROVIDERS: PCP Nurse Practitioner Family; Visit Provider Family Medicine | DX: R19.7 Diarrhea, unspecified (principal) | CPT/HCPCS: 87493 ==

== ENCOUNTER 2022-11-08 13:58 | Outpatient (CLI) | payer OTHER, SELFPAY ==
--- NOTE | 2022-11-08 14:30 | MM_ITS ---
WS: [id number] BILATERAL 3D TOMOSYNTHESIS DIGITAL SCREENING MAMMOGRAPHY WITH CAD CLINICAL INFORMATION: Z12.31 - Encounter for screening mammogram for malignant ... HISTORY: Screening mammogram. No current complaints. COMPARISON: None. TECHNIQUE: Bilateral CC and MLO views. FINDINGS: Scattered fibroglandular densities bilaterally. No suspicious focal mass, asymmetry, calcifications, or architectural distortion. No evidence of malignancy. Vascular calcification. MM/[place] [id number] IMPRESSION: BI-RADS: 2-Benign FOLLOW UP: 1 Year Follow-up Recommend return to annual screening mammography.
== END 2022-11-08 13:59 | disposition home or self-care (01) ==
PROVIDERS: PCP Nurse Practitioner Family; Visit Provider Nurse Practitioner Family
DX: Z12.31 Encounter for screening mammogram for malignant neoplasm of breast (principal)
CPT/HCPCS: 77063; 77067

== ENCOUNTER 2022-12-02 08:30 | Emergency (ER) | payer OTHER, SELFPAY ==
[2022-12-02 08:37] VITALS: BP 160/88; PULSE 72; RESP 15; O2SAT 95; BMI 30.9
[2022-12-02 08:41] VITALS: BP 146/85; PULSE 68; O2SAT 96
--- NOTE | 2022-12-02 08:42 | XRR_ITS ---
PROCEDURE INFORMATION: Exam: XR Chest Exam date and time: 12/02/2022 8:50 AM Age: 62 years old Clinical indication: Dyspnea; Additional info: Screen dizziness TECHNIQUE: Imaging protocol: Radiologic exam of the chest. Views: 1 view. COMPARISON: CR XR chest 1V [id number] 05/11/2019 11:01 AM FINDINGS: Lungs: Faint nodule in the left upper lobe measuring 0.4 cm. No pulmonary consolidation. Pleural spaces: No pleural effusion. No pneumothorax. Heart/Mediastinum: Cardiac silhouette is unchanged. No gross evidence of pneumomediastinum. Bones/joints: No gross fracture. XR/XR chest 1V portable [id number] IMPRESSION: Faint nodule in the left upper lobe measuring 0.[address] chest to better characterize.
--- NOTE | 2022-12-02 08:42 | CTR_ITS ---
PROCEDURE INFORMATION: Exam: CT Head Without Contrast Exam date and time: 12/02/2022 8:53 AM Age: 62 years old Clinical indication: Headache, pain and new onset dizziness. TECHNIQUE: Imaging protocol: Computed tomography of the head without contrast. Radiation optimization: All CT scans at this facility use at least one of these dose optimization techniques: automated exposure control; mA and/or kV adjustment per patient size (includes targeted exams where dose is matched to clinical indication); or iterative reconstruction. REPORTING DATA: Count of CT and Cardiac NM exams in prior 12 months: This patient has received 0 known CTs and 0 known cardiac nuclear medicine studies in the 12 months prior to the current study. COMPARISON: US soft tissue head neck [id number] 02/09/2021 8:29 AM RADIATION DOSE METRICS: Total DLP (mGy-cm): 1100.75 FINDINGS: Brain: No acute intracranial hemorrhage. 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 No mass, mass effect or midline shift. There is no evidence of acute large vessel infarct. The subcortical and periventricular white matter is normal in attenuation. The posterior fossa is grossly unremarkable; however, it is partially obscurred by beam hardening artifact. Cerebral ventricles: The ventricles are normal in configuration. Paranasal sinuses: The visualized paranasal sinuses are clear. Mastoid air cells: No mastoid effusion. Orbital cavities: The visualized orbits are unremarkable. Bones/joints: No acute fracture is seen. Soft tissues: No significant scalp soft tissue swelling. CT/CT head wo con* [id number] IMPRESSION: 1. 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 2. No acute intracranial hemorrhage.
--- NOTE | 2022-12-02 08:43 | ECG_ITS ---
[facility] Test Date: 2022-12-02 Pat Name: Olesya Lujan Department: Room: Gender: Female Supplier Specialist: : 1960 Requested By: Luis A Frye Order Number: [id number] Jacquelin MD: Dexter Stubbs M.D. Measurements Intervals [place] Rate: 66 P: 26 TX: 151 QRS: 19 QRSD: 137 T: 66 QT: 425 QTc: 446 Interpretive Statements SINUS RHYTHM LEFT BUNDLE BRANCH BLOCK [120+ ms QRS DURATION, 80+ ms Q/S IN V1/V2, 85+ ms R IN I/aVL/V5/V6] Compared to ECG 05/11/2019 16:47:52 Left bundle-branch block now present Sinus bradycardia no longer present Electronically Signed On 12-02-2022 15:16:30 CHAINSTITCH SEWING MACHINE OPERATOR by Dexter Stubbs M.D. [email or web address]
--- NOTE | 2022-12-02 08:51 | ED_ITS ---
HPI - Dizziness General: Chief Complaint: Dizziness Stated Complaint: dizziness Time Seen by Provider: 12/02/22 08:38 History of Present Illness: HPI Narrative: 62-year-old female presents with dizziness. Patient reports that she got up around 630 was sitting on edge of her bed. When she bent over to put her slippers on and asked when she became dizzy. She felt like the world was spinning like it and had too much to drink. She reports that now she just has a headache. She still mildly dizzy has a little bit of a headache. She reports that c-Myc her heart was beating rapidly but that is resolved. She denies any fevers chills nausea vomiting or other symptoms at this time. Associated symptoms: Reports headache(s) and palpitations; Denies chest pain, chills, diaphoresis, nausea or vomiting Review of Systems Const: Denies: fever(s), chills or diaphoresis Eyes: Denies: change in vision or blurry vision Card: Reports: palpitations; Denies: chest pain, irregular heart rhythm or edema Resp: Denies: dyspnea or productive cough GI: Denies: abdominal pain, nausea or vomiting : Denies: flank pain or difficulty voiding Musc: Denies: back pain, extremity pain or extremity swelling Skin/Breast: Denies: rash Neuro: Reports: headache(s) and vertigo Psych: Denies: anxiety or depression PFS ED PFSH: Medical History Anemia C. difficile colitis Deafness Hypertension Nephrolithiasis UTI (urinary tract infection) Surgical History H/O esophagogastroduodenoscopy (03/23/21) esophagitis Grade A History of cholecystectomy 2006 History of colonoscopy (03/23/21) sigmoid polyp History of shoulder surgery left- 2012 History of tonsillectomy Family History Grandmother CAD (coronary artery disease) Father Hypertension Other Lung disease Denies family history of Diabetes Cancer Stroke Social History Smoking and tobacco status: never smoked Physical Exam Const: COMMON NORMALS: average body habitus, patient oriented x3, healthy appearing and alert HENMT: COMMON NORMALS: normocephalic, atraumatic, hearing grossly normal bilaterally (Patient does have hearing aids) and moist oral mucous membranes HEAD & SCALP: normocephalic and atraumatic Eye: COMMON NORMALS: Equal, round and reactive pupils present and EOMs intact bilaterally PUPIL: Yes Equal, round and reactive pupils present Neck/C-Spine: COMMON NORMALS: no JVD Resp: COMMON NORMALS: normal respiratory effort, No retractions and No use of accessory muscles Cardio: COMMON NORMALS: no JVD, regular rate and regular rhythm RATE: regular rate RHYTHM: regular rhythm GI: COMMON NORMALS: Normal to inspection, nondistended, normoactive bowel sounds present, Soft to palpation and non-tender PALPATION: Yes Soft to palpation Extremity: COMMON NORMALS: normal to inspection, full ROM and capillary refill normal Neuro: COMMON NORMALS: patient oriented x3, CN's II-XII intact bilaterally, moves all extremities and no focal motor deficits SENSORIUM/ORIENTATION: Yes alert Psych: COMMON NORMALS: mental status grossly normal, Normal thought process present, cooperative and normal affect THOUGHT PROCESS: Normal thought process present Skin: COMMON NORMALS: no rashes or lesions noted and turgor normal GENERAL SKIN EXAM: no rashes or lesions noted and turgor normal Course Vital Signs: Vital signs: Vital Signs Pulse Rate 68 12/02/22 08:41 Respiratory Rate 15 12/02/22 08:37 Blood Pressure 146/85 12/02/22 08:41 Pulse Oximetry 96 12/02/22 08:41 Oxygen Delivery Me thod 12/02/22 08:41 [facility] - Dizziness Medical Decision Making Diagnostic tests were ordered analyzed and reviewed by me. Radiologic studies were reviewed and read by me initially then reviewed radiologist final interpretation. EKG was interpreted by me with finding of left bundle branch but no Sgarbossa criteria noted. Discussed findings with patient. Following review of her labs and radiology and EKG. Patient was offered further testing such as CTA, further EKG and troponin studies. However with joint decision- making she felt that she would prefer to go home and follow-up with her primary care provider. As part of the patient's evaluation and management I reviewed patient's clinical notes, prior ER visits, discharge summary from previous visits and previous inpatient admissions. Patient is stable. I did recommend she drink plenty of fluids as her vertigo has resolved. She still has a minor headache but reports that that happens frequently Lab Data 12/02/22 08:41 12/02/22 08:41 Radiology Impressions Chest X-Ray 12/02/22 08:42 IMPRESSION: Faint nodule in the left upper lobe measuring 0.[address] chest to better characterize. Head CT 12/02/22 08:42 IMPRESSION: 1. 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 2. No acute intracranial hemorrhage. Laboratory Results WBC 6.2 10^3/uL (4.0-10.0) 12/02/22 08:41 RBC 4.16 10^6/uL (4.1-5.3) 12/02/22 08:41 Hgb 12.7 g/dL (11.5-15.3) 12/02/22 08:41 Hct 37.6 % (37.0-47.0) 12/02/22 08:41 MCV 90.4 fl (81-99) 12/02/22 08:41 MCH 30.5 pg (28.0-34.0) 12/02/22 08:41 MCHC 33.8 g/dL (30.0-36.0) 12/02/22 08:41 RDW 11.6 % (12.1-15.1) L 12/02/22 08:41 Plt Count 231 10^3/cmm (130-400) 12/02/22 08:41 MPV 10.5 fL (7.4-10.4) H 12/02/22 08:41 Neut % (Auto) 73.1 % 12/02/22 08:41 Lymph % (Auto) 19.1 % 12/02/22 08:41 [place] % (Auto) 5.7 % 12/02/22 08:41 Eos % (Auto) 1.3 % 12/02/22 08:41 Baso % (Auto) 0.3 % 12/02/22 08:41 Neut # (Auto) 4.51 10^3/uL (1.8-7.7) 12/02/22 08:41 Lymph # (Auto) 1.2 10^3/uL (0.8-4.8) 12/02/22 08:41 [place] # (Auto) 0.4 10^3/uL (0.2-0.9) 12/02/22 08:41 Eos # (Auto) 0.1 10^3/uL (0.0-0.8) 12/02/22 08:41 Baso # (Auto) 0.0 10^3/uL (0.0-0.1) 12/02/22 08:41 Nucleated RBC % (auto) 0 % 12/02/22 08:41 Nucleated RBCs # 0.0 /100WBC 12/02/22 08:41 Sodium 135 mmol/L (136-145) L 12/02/22 08:41 Potassium 3.8 mmol/L (3.5-5.1) 12/02/22 08:41 Chloride 97 mmol/L (98-107) L 12/02/22 08:41 Carbon Dioxide 28 mmol/L (22-29) 12/02/22 08:41 Anion Gap 13.8 (5-19) 12/02/22 08:41 BUN 21 mg/dL (8-23) 12/02/22 08:41 Creatinine 0.7 mg/dL (0.5-0.9) 12/02/22 08:41 GFR Calculation 84.5 mL/min (90-130) L 12/02/22 08:41 Glucose 111 mg/dL (65-115) 12/02/22 08:41 Calculated Osmolality 284 mOsm/kg (285-295) L 12/02/22 08:41 Calcium 9.1 mg/dL (8.5-10.5) 12/02/22 08:41 Magnesium 1.9 mg/dL (1.7-2.3) 12/02/22 08:41 Total Bilirubin 0.3 mg/dL (0.15-1.2) 12/02/22 08:41 AST 14 U/L (0-32) 12/02/22 08:41 ALT 17 U/L (0-33) 12/02/22 08:41 Alkaline Phosphatase 54 U/L (35-105) 12/02/22 08:41 Troponin T Baseline 7 ng/L (0-10) 12/02/22 08:41 Total Protein 6.9 g/dL (6.6-8.7) 12/02/22 08:41 Albumin 3.9 g/dL (3.5-5.2) 12/02/22 08:41 Globulin 3.0 g/dL (1.3-4.6) 12/02/22 08:41 EKG Data EKG 1: I personally reviewed and interpreted this EKG as follows: EKG interpretation date: 12/02/22 EKG interpretation time: 09:07 Interpretation: sinus, LBBB, HR 66 Discharge Plan Discharge Patient Disposition: Home Clinical Impression: Vertigo, Bundle branch block, left, Chest x-ray abnormality Condition: Stable Prescriptions: No Action hydrochlorothiazide 25 mg tablet 25 mg PO DAILY Qty: 90 3RF lisinopril 20 mg tablet 20 mg PO DAILY Qty: 90 3RF famotidine [Pepcid AC] 10 mg tablet 10 mg PO DAILY PRN [id number]-kaffkl-kixyrpjv-scop [] 16.2-0.1037 -0.0194 mg tablet 1 tab PO BID Qty: 60 0RF hydroxyzine HCl 25 mg tablet 25 mg PO TID PRN (Reason: itching) Qty: 20 0RF hydrocortisone 2.5 % ointment 1 applic topical TID PRN (Reason: skin irritation) Qty: 28.35 1RF metoprolol tartrate 50 mg tablet See Rx Instructions .ROUTE .COMPLEX Qty: 90 2RF Dose Instruction: TAKE ONE (1) AND ONE HALF (1/2) TABLETS BY MOUTH TWICE A DAY Rx Instructions: TAKE ONE (1) AND ONE HALF (1/2) TABLETS BY MOUTH TWICE A DAY acetaminophen [Tylenol] 325 mg Tablet 325 - 650 mg PO QID PRN (Reason: Pain) fluticasone propionate 50 mcg/actuation [place],Suspension 1 spray INTRANASAL DAILY Vitamin B-12 1 tab PO DAILY@0800 Vitamin D3 1 tab PO DAILY@0800 Discharge Orders: Discharge ED (Routine); Ordered 12/02/22 Ordered By: Luis A Frye Referrals: Ct Arriola NP [Primary Care Provider] - Discharge Diet: Usual diet Discharge Activity: Resume usual activity Patient Instructions: Vertigo (DC), Opioid Safety, Pain Management Activity Restrictions/Additional Instructions: May use [id number] meclizine/Antivert to help with your vertigo. Please ensure you are drinking plenty of fluids. Please follow-up with your primary care provider in the next couple days to review your imaging and to order outpatient studies as they feel indicated. This may include a CT chest, head MRI along with recommendations that you follow-up with a systems developer for your blood pressure and left bundle branch block to be further evaluated. Coding Level of Care Code ED [employer] for Salena Stovall
[2022-12-02 08:52] LABS: Basophils % 0.3 %; Eosinophils # 0.1 10^3/uL (0.0-0.8); Eosinophils % 1.3 %; Hematocrit 37.6 % (37.0-47.0); Hemoglobin 12.7 g/dL (11.5-15.3); Lymphocytes # 1.2 10^3/uL (0.8-4.8); Lymphocytes % 19.1 %; Mean Corpuscular HGB Conc 33.8 g/dL (30.0-36.0); Mean Corpuscular Hemoglobin 30.5 pg (28.0-34.0); Mean Corpuscular Volume 90.4 fl (81-99); Mean Platelet Volume 10.5 fL (7.4-10.4); Monocytes # 0.4 10^3/uL (0.2-0.9); Monocytes % 5.7 %; Neutrophils # 4.51 10^3/uL (1.8-7.7); Neutrophils % 73.1 %; Nucleated Red Blood Cells % 0 %; Platelet Count 231 10^3/cmm (130-400); Red Blood Count 4.16 10^6/uL (4.1-5.3); Red Cell Distribution Width 11.6 % (12.1-15.1); White Blood Count 6.2 10^3/uL (4.0-10.0)
[2022-12-02] MEDS: sodium chloride 0.9% 500 ML 999 ML IV ×2 (09:12→09:52)
[2022-12-02] MEDS: ketorolac 30 mg/mL INJ 15 MG IVP (09:12)
[2022-12-02] MEDS: meclizine 25 mg tablet 50 MG PO (09:13)
[2022-12-02 09:20] LABS: Alanine Aminotransferase 17 U/L (0-33); Albumin Level 3.9 g/dL (3.5-5.2); Alkaline Phosphatase 54 U/L (35-105); Anion Gap 13.8 (5-19); Aspartate Amino Transferase 14 U/L (0-32); Blood Urea Nitrogen 21 mg/dL (8-23); Calcium 9.1 mg/dL (8.5-10.5); Carbon Dioxide 28 mmol/L (22-29); Chloride 97 mmol/L (98-107); Glomerular Filtration Rate 84.5 mL/min (90-130); Glucose 111 mg/dL (65-115); Magnesium 1.9 mg/dL (1.7-2.3); Osmolality Calculated 284 mOsm/kg (285-295); Potassium 3.8 mmol/L (3.5-5.1); Sodium 135 mmol/L (136-145); Total Bilirubin 0.3 mg/dL (0.15-1.2); Total Protein 6.9 g/dL (6.6-8.7); Troponin(5th) Baseline 7 ng/L (0-10)
[2022-12-02 10:29] VITALS: BP 150/81; PULSE 73; O2SAT 93
[2022-12-02 11:01] LABS: Specific Gravity, Urine 1.005 (1.005-1.030); Urine Appearance Clear (CLEAR); Urine Color Straw (Yellow); pH Urine 7 (5-7)
[2022-12-02 11:02] LABS: Add Urine Culture? No; Add Urine Microscopic? YES; Bacteria Urine 1+ /hpf; Bilirubin Urine Neg (Negative); Blood Urine 3+ (Negative); Glucose Urine UA Norm (Normal); Ketones Urine Negative (Negative); Leukocyte Esterase Urine 2+ (Negative); Nitrate Urine Negative (Negative); Protein Urine Neg (Negative); Urobilinogen Urine Norm (Negative)
== END 2022-12-02 10:30 | disposition home or self-care (01) ==
PROVIDERS: Emergency Provider Student in an Organized Health Care Education/Training Program; PCP Nurse Practitioner Family
DX: R42 Dizziness and giddiness (principal); I44.7 Left bundle-branch block, unspecified; R93.89 Abnormal findings on diagnostic imaging of other specified body structures; I10 Essential (primary) hypertension
CPT/HCPCS: 70450; 71045; 80053; 81001; 83735; 84484; 85025; 93005; 96361; 96374; 99285; J1885; J7040; J8597

== ENCOUNTER 2023-03-14 11:51 | Outpatient (CLI) | payer OTHER, SELFPAY ==
[2023-03-14] MEDS: iohexol 350 mg/mL 500 mL Btl (per mL) IV (12:06)
--- NOTE | 2023-03-14 12:30 | CT_ITS ---
WS: [id number] CT chest w con* [id number] HISTORY: R91.1 - Solitary pulmonary nodule TECHNIQUE: Axial imaging performed through the thorax. Coronal and sagittal reformats are submitted. All CT scans at [facility] use at least one of these dose optimization techniques: automated exposure control; mA and/or kV adjustment per patient size (includes targeted exams where dose is mat ched to clinical indication); or iterative reconstruction. CONTRAST: Omnipaque 350; 100 mL IV. DLP: 230.19 mGy.cm COMPARISON: Chest radiograph 12/02/2022 Lungs and central airway: Mildly hyperinflated lungs. No LEFT upper lobe pulmonary nodule is identifi ed to correspond to the chest radiograph findings. There are a few scattered micronodules in the uppe r lung sutton and subpleural nodules. These are all less than 3 mm. There is an irregular opacificati on in the posterior LEFT lower lobe measuring 11 x 10 mm and extending over a length of 10 mm which w ill need to be further evaluated. Pleura: Normal. No pleural effusion. Heart and pericardium: Very mild cardiomegaly. No pericardial effusion. Mediastinum and ken: No mediastinum or hilar adenopathy. Vessels: Mild atherosclerosis aorta. Normal size pulmonary artery. Chest wall and lower neck: No soft tissue masses. Upper abdomen: Small hiatal hernia. No adrenal mass. Prior cholecystectomy. Osseous structures: No destructive process. CT/CT chest w con* [id number] IMPRESSION: 1. No corresponding nodule LEFT upper lobe to correlate with the chest radiogr aph finding. 2. Chronic emphysema with a few scattered micronodules and pleural micronodule s. No additional follow-up necessary. 3. Irregular opacification posterior LEFT lower lobe measures 11 x 10 x 10 mm. Early neoplasm not excluded. Recommend [address] follow-up with IV cont rast. Differential includes pneumonitis, scarring or early neoplasm. 4. Mild cardiomegaly. 5. Small hiatal hernia.
== END 2023-03-14 11:52 | disposition home or self-care (01) ==
PROVIDERS: PCP Nurse Practitioner Family; Visit Provider Nurse Practitioner Family
DX: R91.1 Solitary pulmonary nodule (principal); J43.9 Emphysema, unspecified; R91.8 Other nonspecific abnormal finding of lung field; I51.7 Cardiomegaly; K44.9 Diaphragmatic hernia without obstruction or gangrene
CPT/HCPCS: 71260; Q9967

== ENCOUNTER → 2023-06-28 09:59 | Outpatient (BNVA) | payer OTHER, SELFPAY | PROVIDERS: PCP Nurse Practitioner Family; Visit Provider Nurse Practitioner Family | DX: I10 Essential (primary) hypertension (principal); E78.00 Pure hypercholesterolemia, unspecified | CPT/HCPCS: 80053; 80061; 84443 ==

== ENCOUNTER 2023-07-17 16:30 | Outpatient (CLI) | payer OTHER, SELFPAY ==
--- NOTE | 2023-07-17 16:49 | CT_ITS ---
WS: [id number] CT chest w con* [id number] HISTORY: 3-month follow-up irregular opacification LEFT lower lobe TECHNIQUE: Axial imaging performed through the thorax. Coronal and sagittal reformats are submitted. All CT scans at [facility] use at least one of these dose optimization techniques: automated exposure control; mA and/or kV adjustment per patient size (includes targeted exams where dose is mat ched to clinical indication); or iterative reconstruction. CONTRAST: Omnipaque 350; 100 mL IV. DLP: 356.38 mGy.cm COMPARISON: 03/14/2023 Lungs and central airway: Mild pulmonary hyperinflation. There are few scattered unchanged micronodul es which are less than 3 mm. Reidentified is the nodular opacification in the posterior LEFT lower lo be. This opacification is slightly less consolidated than on the prior examination. This opacificatio n has not resolved. No dense areas of consolidation Pleura: Normal. No pleural effusion. Heart and pericardium: Normal size heart with no pericardial effusion. Mediastinum and ken: No mediastinum or hilar adenopathy. Vessels: Normal size aortic and pulmonary artery. No coronary artery calcifications. Chest wall and lower neck: No soft tissue masses. Upper abdomen: Small hiatal hernia. Prior cholecystectomy. No adrenal mass. Osseous structures: No destructive process. IMPRESSION: 1. Slight change in size and appearance of the irregular opacification in the posterior LEFT lower lo be. Opacification is slightly less consolidated but more nodular. Recommend follow-up chest CT in 6 m [facility] with IV contrast. 2. Stable chronic emphysema and micronodules. 3. Prior cholecystectomy.
[2023-07-17] MEDS: iohexol 350 mg/mL 500 mL Btl (per mL) IV (17:12)
== END 2023-07-17 16:31 | disposition home or self-care (01) ==
PROVIDERS: PCP Nurse Practitioner Family; Visit Provider Nurse Practitioner Family
DX: R91.8 Other nonspecific abnormal finding of lung field (principal); R93.89 Abnormal findings on diagnostic imaging of other specified body structures; J43.9 Emphysema, unspecified
CPT/HCPCS: 71260; Q9967